=== PATIENT | female | born 1930 | race Caucasian/White ===

== ENCOUNTER 2016-09-24 21:33 | Inpatient (IN) | payer MEDICARE ==
[~2016-09-24] VITALS: Ht 160 cm; Wt 74.6 kg
[~2016-09-24 21:33] MED LIST: LEVO250T25 PO; METR500T PO; PRED20TA PO; TRAM50TA PO; WARF3TAB PO; WARF5TAB PO
--- NOTE | 2016-09-24 21:57 | PHYS DOC ---
Past Medical History Past Medical History: COPD Additional Past Medical Histor: WEARS O2 AT HOME Past Surgical History: Cholecystectomy, Tubal ligation Alcohol Use: None Drug Use: None Adult General Chief Complaint Chief Complaint: NEURO SYMPTOMS/DEFICITS HPI HPI Patient is a 86 year old female who presents with RUE weakness. Patient reports she was crocheting tonight ~2030 when she had acute onset of RUE weakness. This weakness has persisted; she denies weakness anywhere else. She denies numbness, change in vision, headache, slurred speech. No other acute symptoms. No prior similar episodes. She was taking warfarin in the past for DVT , but stopped this 6 months ago. Review of Systems Review of Systems Constitutional: Denies fever or chills Eyes: Denies change in visual acuity or eye pain HENT: Denies nasal congestion or sore throat Respiratory: Denies cough or shortness of breath Cardiovascular: Denies chest pain GI: Denies abdominal pain, nausea, vomiting, bloody stools or diarrhea : Denies dysuria or hematuria Musculoskeletal: Denies back pain or joint pain Integument: Denies rash or skin lesions Neurologic: RUE weakness. Denies headache, sensory changes Current Medications Current Medications Current Medications Medications (Trade) Dose Ordered Sig/Teodoro Start Time Stop Time Status Last Admin Dose Admin Aspirin (Quintin Aspirin) 325 mg 1X ONCE 09/24/16 23:15 09/24/16 23:16 DC 09/24/16 23:30 325 MG Labetalol HCl (Normodyne) 10 mg 1X ONCE 09/24/16 22:00 09/24/16 22:01 DC 09/24/16 22:08 10 MG Allergies Allergies Allergies Coded Allergies Type Severity Reaction Last Updated Verified codeine Allergy Severe Anaphylaxis 04/08/15 Yes nitrofurantoin Allergy Severe Shortness of Air 04/09/15 Yes Penicillins Allergy Intermediate Rash 04/08/15 Yes ciprofloxacin Adverse Reaction Intermediate DOES NOT WORK 04/09/15 Yes nut - unspecified Adverse Reaction Intermediate DIVERTICULITIS 01/08/16 No egg Adverse Reaction Unknown heartburn, indigestion 01/05/16 Yes onion Adverse Reaction Unknown STOMACH ACHE 01/08/16 No Physical Exam Physical Exam Constitutional: Well developed, well nourished, no acute distress, non-toxic appearance HENT: Normocephalic, atraumatic, bilateral external ears normal Eyes: PERRL, EOMI, conjunctiva normal, no discharge Neck: Normal range of motion, no stridor Cardiovascular: Heart rate normal, regular rhythm, no murmur Lungs & Thorax: Bilateral breath sounds clear to auscultation Abdomen: Bowel sounds normal, soft, non-distended, no TTP Skin: Warm, dry, no erythema, no rash Extremities: No obvious deformity, no edema Neurologic: Alert and oriented X 3, GCS 15, CN II-XII grossly intact, strength mildly decreased in RUE compared to LUE (shearing shed hand strength, flexion and extension of forearm), strength intact and symmetrical in BLE, sensation to light touch intact throughout, no dystaxia noted Psychologic: Affect normal, judgement normal, mood normal Current Patient Data Vital Signs Vital Signs Date Time Temp Pulse Resp B/P Pulse Ox O2 Delivery O2 Flow Rate FiO2 09/24/16 22:45 80 20 148/69 96 09/24/16 22:20 Nasal Cannula 2 09/24/16 21:35 98.3 98.3 Lab Values Laboratory Tests Test 09/24/16 22:24 09/24/16 22:33 White Blood Count 10.0x10^3/uL (4.0-11.0) Red Blood Count 4.72x10^6/uL (3.50-5.40) Hemoglobin 12.5g/dL (12.0-15.5) Hematocrit 39.2% (36.0-47.0) Mean Corpuscular Volume 83fL (79-100) Mean Corpuscular Hemoglobin 27pg (25-35) Mean Corpuscular Hemoglobin Concent 32g/dL (31-37) Red Cell Distribution Width 15.2% (11.5-14.5) H Platelet Count 358x10^3/uL (140-400) Neutrophils (%) (Auto) 82% (31-73) H Lymphocytes (%) (Auto) 10% (24-48) L Monocytes (%) (Auto) 7% (0-9) Eosinophils (%) (Auto) 1% (0-3) Basophils (%) (Auto) 0% (0-3) Neutrophils # (Auto) 8.2x10^3uL (1.8-7.7) H Lymphocytes # (Auto) 1.0x10^3/uL (1.0-4.8) Monocytes # (Auto) 0.7x10^3/uL (0.0-1.1) Eosinophils # (Auto) 0.1x10^3/uL (0.0-0.7) Basophils # (Auto) 0.0x10^3/uL (0.0-0.2) Prothrombin Time 13.7SEC (11.7-14.0) Prothrombin Time INR 1.1 (0.8-1.1) PTT 27SEC (24-38) Sodium Level 145mmol/L (136-145) Potassium Level 3.9mmol/L (3.5-5.1) Chloride Level 107mmol/L (98-107) Carbon Dioxide Level 30mmol/L (21-32) Anion Gap 8 (6-14) Blood Urea Nitrogen 18mg/dL (7-20) Creatinine 1.1mg/dL (0.6-1.0) H Estimated GFR (Cockcroft-Gault) 47.1 BUN/Creatinine Ratio 16 (6-20) Glucose Level 152mg/dL (70-99) H Calcium Level 9.1mg/dL (8.5-10.1) Total Bilirubin 0.3mg/dL (0.2-1.0) Aspartate Amino Transferase (AST) 10U/L (15-37) L Alanine Aminotransferase (ALT) 11U/L (14-59) L Alkaline Phosphatase 78U/L (46-116) Total Protein 6.2g/dL (6.4-8.2) L Albumin 3.0g/dL (3.4-5.0) L Albumin/Globulin Ratio 0.9 (1.0-1.7) L Glucose (Fingerstick) 138mg/dL (70-99) H Laboratory Tests 09/24/16 22:24 Laboratory Tests 09/24/16 22:24 EKG EKG EKG (my read): sinus tachycardia, rate 116, normal axis, PVC noted x2, nonspecific ST changes Radiology/Procedures Radiology/Procedures CT head: IMPRESSION: Subtle area of low attenuation in the left frontal lobe could represent early ischemia. No intracranial blood products present. Findings were discussed with Dr. Ferrera in the ER at 22:04 on 09/24/16 per code stroke protocol. CXR (my read): No significant change from prior RLE US: Pending Course & Med Decision Making Course & Med Decision Making Pertinent Labs and Imaging studies reviewed. (See chart for details) Patient is 86-year-old female who presents with acute onset of right upper extremity weakness. Activated as a code stroke. Taken emergently to CT. Imaging results as above. Labs, chest x-ray, EKG ordered to evaluate. Later, I added on an ultrasound of her right lower extremity; this has been feeling abnormal for the past couple weeks and she has a history of DVT in that leg. NIHSS only 1. I spoke with the on-call neurologist, Dr. Knight; patient within window for treatment with tPA and does not have any absolute contraindications. I had a long discussion with patient and her son, Bryan (on the phone), about the possibility of giving tPA to treat the suspected acute stroke. Together we came to the decision that the benefit of giving tPA to try to regain full function of the right upper extremity was not worth the risk. I specifically discussed with the patient that her right upper extremity deficit could be permanent, and affect her ability to do activities she enjoys (such as heather). Despite this, we still came to the conclusion that the risk from tPA was not worth the benefit due to her relatively mild deficit. I spoke with Dr. Renee (covering for Dr. Rincon); will admit under the care of Dr. Maicas for further evaluation and treatment. Dragon Disclaimer Dragon Disclaimer This electronic medical record was generated, in whole or in part, using a voice recognition dictation system. Departure Departure Impression: Primary Impression: Muscle weakness of right upper extremity Disposition: ADMITTED INPATIENT Admitting Physician: Stephanie Macias Condition: GUARDED Referrals: OSMAR RINCON MD (PCP) MARLA FERRERA MD Sep 24, 2016 21:57
[2016-09-24] MEDS ORDERED: LABETALOL 20 MG/4 ML DISP.SYRIN. IVP ONE (22:00)
--- NOTE | 2016-09-24 22:06 | RAD ---
INDICATION: 86-year-old female code stroke. Right upper extremity numbness since 8:30 p.m. COMPARISON: February 25, 2009, images only. TECHNIQUE: Axial, noncontrast CT images obtained through the head. One or more of the following individualized dose reduction techniques were utilized for this examination: 1. Automated exposure control; 2. Adjustment of the mA and/or kV according to patient size; 3. Use of iterative reconstruction technique. FINDINGS: No acute blood products, midline shift, mass effect or extra-axial fluid collections are seen. A subtle area of low attenuation is demonstrated in the left frontal lobe in the subcortical and periventricular region, not visualized on the previous exam from 2008. No other focal areas of low attenuation are seen. Ventricles and sulci appear appropriate for patient's age. Basilar cisterns are maintained. The visualized paranasal sinuses are clear. Mastoid air cells are clear. No calvarial fracture is present. Overlying scalp is intact. IMPRESSION: Subtle area of low attenuation in the left frontal lobe could represent early ischemia. No intracranial blood products present. Findings were discussed with Dr. Ferrera in the ER at 22:04 on 09/24/16 per code stroke protocol. Electronically signed by: Liza Mancuso (Sep 24, 2016 22:05:26)
[2016-09-24 22:46] LABS: BASO % 0 % (0-3); EOS % 1 % (0-3); HEMATOCRIT 39.2 % (36.0-47.0); HEMOGLOBIN 12.5 g/dL (12.0-15.5); LYMPH % 10 % (24-48); MEAN CORPUSCULAR HEMOGLOBIN 27 pg (25-35); MEAN CORPUSCULAR HGB CONC 32 g/dL (31-37); MEAN CORPUSCULAR VOLUME 83 fL (79-100); MONO % 7 % (0-9); NEUT % 82 % (31-73); PLATELET COUNT 358 x10^3/uL (140-400); RED BLOOD COUNT 4.72 x10^6/uL (3.50-5.40); RED CELL DISTRIBUTION WIDTH 15.2 % (11.5-14.5)
[2016-09-24 22:55] LABS: INR 1.1 (0.8-1.1); PROTHROMBIN TIME PATIENT 13.7 SEC (11.7-14.0)
[2016-09-24 23:01] LABS: CALCIUM 9.1 mg/dL (8.5-10.1); CREATININE 1.1 mg/dL (0.6-1.0); GFR 47.1; POTASSIUM 3.9 mmol/L (3.5-5.1)
[2016-09-24 23:07] LABS: ALBUMIN/GLOBULIN RATIO 0.9 (1.0-1.7); TOTAL BILIRUBIN 0.3 mg/dL (0.2-1.0); TOTAL PROTEIN 6.2 g/dL (6.4-8.2)
[2016-09-24] MEDS ORDERED: ASPIRIN 325 MG TABLET PO ONE (23:15)
[2016-09-24] MEDS ORDERED: ACETAMINOPHEN 325 MG TABLET. PO PRN (23:45)
[2016-09-24] MEDS ORDERED: ONDANSETRON PF 4 MG/2 ML VIAL. IV PRN (23:45)
[2016-09-24] MEDS ORDERED: LABETALOL 20 MG/4 ML DISP.SYRIN. IVP PRN (23:45)
[2016-09-25] VITALS (7 sets, daily range): BP systolic 118–164; BP diastolic 46–67
--- NOTE | 2016-09-25 02:13 | RAD ---
PROCEDURE Right lower extremity venous Doppler HISTORY pt c/o funny feeling in her rt leg x 2 months
hx of clot in peroneal vns

no evidence of dvt
the area where prev clot was seen, is patent and compressible TECHNIQUE Real-time ultrasound with compression, color flow Doppler and spectral Doppler with augmentation were utilized to evaluate the right lower extremity COMPARISON Comparison made with the study from June 2015 FINDINGS The common femoral, femoral, greater saphenous, and popliteal veins are compressible. Veins of the right lower extremity have flow with color imaging. There is normal antegrade flow with augmentation. There is flow with color Doppler in the deep veins of the calf with improvement in the peroneal vein since the old study. IMPRESSION Right lower extremity negative for acute deep venous thrombosis with improvement in the peroneal veins compared to the prior study. Electronically signed by: Jim López MD (Sep 25, 2016 02:12:25)
[2016-09-25 05:05] LABS: BASO % 0 % (0-3); EOS % 2 % (0-3); HEMATOCRIT 35.1 % (36.0-47.0); HEMOGLOBIN 11.2 g/dL (12.0-15.5); LYMPH # 1.5 x10^3/uL (1.0-4.8); LYMPH % 18 % (24-48); MEAN CORPUSCULAR HEMOGLOBIN 27 pg (25-35); MEAN CORPUSCULAR HGB CONC 32 g/dL (31-37); MEAN CORPUSCULAR VOLUME 84 fL (79-100); MONO % 9 % (0-9); NEUT % 71 % (31-73); PLATELET COUNT 295 x10^3/uL (140-400); RED BLOOD COUNT 4.17 x10^6/uL (3.50-5.40); RED CELL DISTRIBUTION WIDTH 15.2 % (11.5-14.5); WHITE BLOOD COUNT 8.6 x10^3/uL (4.0-11.0)
[2016-09-25 05:17] LABS: CALCIUM 8.7 mg/dL (8.5-10.1); GFR 52.6; POTASSIUM 3.7 mmol/L (3.5-5.1)
--- NOTE | 2016-09-25 07:57 | RAD ---
Portable chest, 09/24/2016: History: Right upper extremity weakness, possible stroke Comparison is made to a study from 04/08/2015. The heart size is normal. There is calcific plaquing of the aorta. There are a few scattered parenchymal scars. No acute infiltrate is seen. There is no evidence of pleural fluid. The bony structures are demineralized. IMPRESSION: No acute cardiopulmonary abnormality is detected with no significant change since 04/08/2015.
[2016-09-25] MEDS ORDERED: GADOBUTROL 7.5 MMOL/7.5 ML VIAL IV ONE (12:15)
--- NOTE | 2016-09-25 12:42 | RAD ---
MR of the brain with gadolinium, 09/25/2016: History: Right-sided weakness Imaging was performed in axial, sagittal and coronal planes utilizing a variety of imaging sequences including T1-weighted, T2-weighted, diffusion-weighted, FLAIR and T2*gradient echo sequences. T1 weighted scans were also obtained following IV injection of 7.5 cc of the Gadavist contrast agent. The ventricles are within normal limits in size. There is no shift of the midline structures. A small focus of restricted diffusion is seen in the cortex in the left parietal lobe. No abnormal postcontrast enhancement is seen in this region. The appearance is that of a small recent infarct. There are small areas of abnormal signal in the deep white matter bilaterally on the FLAIR sequence. There is no restricted diffusion or abnormal postcontrast enhancement in these regions. The findings are compatible with chronic ischemic change. The cerebellum and brainstem are unremarkable. No abnormal extra-axial fluid collection or mass is seen. IMPRESSION: 1. 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 2. Mild chronic ischemic change in the deep white matter bilaterally.
--- NOTE | 2016-09-25 12:49 | PDOC ---
OBJECTIVE Vital Signs Vital Signs Date Time Temp Pulse Resp B/P Pulse Ox O2 Delivery O2 Flow Rate FiO2 09/25/16 11:07 97.9 85 19 128/61 94 97.9 09/25/16 08:21 Nasal Cannula 2.0 09/25/16 07:45 97.9 68 18 121/49 95 97.9 09/25/16 03:28 97.9 77 18 140/59 95 97.9 09/25/16 01:43 Nasal Cannula 2.0 09/25/16 00:35 97.9 77 22 164/65 95 Nasal Cannula 2.0 97.9 09/24/16 23:59 74 20 144/67 97 Nasal Cannula 2 09/24/16 23:32 82 20 150/63 97 Nasal Cannula 2 09/24/16 22:45 80 20 148/69 96 09/24/16 22:20 81 17 143/65 97 Nasal Cannula 2 09/24/16 22:08 101 173/81 09/24/16 22:00 96 20 167/74 97 Nasal Cannula 2 09/24/16 21:35 98.3 109 16 212/88 95 Nasal Cannula 2 98.3 ASSESSMENT/PLAN Assessment/Plan 101158 H&P dictated Problems: COMMENT Lab Laboratory Tests Test 09/24/16 22:24 09/24/16 22:33 09/25/16 03:45 White Blood Count 10.0x10^3/uL (4.0-11.0) 8.6x10^3/uL (4.0-11.0) Red Blood Count 4.72x10^6/uL (3.50-5.40) 4.17x10^6/uL (3.50-5.40) Hemoglobin 12.5g/dL (12.0-15.5) 11.2g/dL (12.0-15.5) Hematocrit 39.2% (36.0-47.0) 35.1% (36.0-47.0) Mean Corpuscular Volume 83fL (79-100) 84fL (79-100) Mean Corpuscular Hemoglobin 27pg (25-35) 27pg (25-35) Mean Corpuscular Hemoglobin Concent 32g/dL (31-37) 32g/dL (31-37) Red Cell Distribution Width 15.2% (11.5-14.5) 15.2% (11.5-14.5) Platelet Count 358x10^3/uL (140-400) 295x10^3/uL (140-400) Neutrophils (%) (Auto) 82% (31-73) 71% (31-73) Lymphocytes (%) (Auto) 10% (24-48) 18% (24-48) Monocytes (%) (Auto) 7% (0-9) 9% (0-9) Eosinophils (%) (Auto) 1% (0-3) 2% (0-3) Basophils (%) (Auto) 0% (0-3) 0% (0-3) Neutrophils # (Auto) 8.2x10^3uL (1.8-7.7) 6.1x10^3uL (1.8-7.7) Lymphocytes # (Auto) 1.0x10^3/uL (1.0-4.8) 1.5x10^3/uL (1.0-4.8) Monocytes # (Auto) 0.7x10^3/uL (0.0-1.1) 0.8x10^3/uL (0.0-1.1) Eosinophils # (Auto) 0.1x10^3/uL (0.0-0.7) 0.2x10^3/uL (0.0-0.7) Basophils # (Auto) 0.0x10^3/uL (0.0-0.2) 0.0x10^3/uL (0.0-0.2) Prothrombin Time 13.7SEC (11.7-14.0) Prothromb Time International Ratio 1.1 (0.8-1.1) Activated Partial Thromboplast Time 27SEC (24-38) Sodium Level 145mmol/L (136-145) 146mmol/L (136-145) Potassium Level 3.9mmol/L (3.5-5.1) 3.7mmol/L (3.5-5.1) Chloride Level 107mmol/L (98-107) 109mmol/L (98-107) Carbon Dioxide Level 30mmol/L (21-32) 33mmol/L (21-32) Anion Gap 8 (6-14) 4 (6-14) Blood Urea Nitrogen 18mg/dL (7-20) 18mg/dL (7-20) Creatinine 1.1mg/dL (0.6-1.0) 1.0mg/dL (0.6-1.0) Estimated GFR (Cockcroft-Gault) 47.1 52.6 BUN/Creatinine Ratio 16 (6-20) Glucose Level 152mg/dL (70-99) 116mg/dL (70-99) Calcium Level 9.1mg/dL (8.5-10.1) 8.7mg/dL (8.5-10.1) Total Bilirubin 0.3mg/dL (0.2-1.0) Aspartate Amino Transf (AST/SGOT) 10U/L (15-37) Alanine Aminotransferase (ALT/SGPT) 11U/L (14-59) Alkaline Phosphatase 78U/L (46-116) Total Protein 6.2g/dL (6.4-8.2) Albumin 3.0g/dL (3.4-5.0) Albumin/Globulin Ratio 0.9 (1.0-1.7) Glucose (Fingerstick) 138mg/dL (70-99) JOSE MURPHY MD Sep 25, 2016 12:49
[2016-09-25 13:08] LABS: CHOLESTEROL/HDL RATIO 3.6
--- NOTE | 2016-09-25 13:25 | PREOP HP ---
DATE OF SERVICE: 09/24/2016 HISTORY OF PRESENT ILLNESS: The patient is an 86-year-old lady who presented to the Emergency Room due to right lower extremity weakness. The patient stated that she was crocheting as usual in the evening while she had acute onset of numbness and weakness in the right upper extremity. She denies any changes in her vision. Denies headache, denies slurred speech, any weakness or numbness in her lower extremity. She had no prior episodes of any similar symptoms. PAST MEDICAL HISTORY: Significant for cataract surgery; COPD; emphysema; bronchitis; diverticulitis; cholecystectomy; UTI; stress incontinence; osteoarthritis; DVT, was on anticoagulation in 2016, stopped Coumadin 6 months ago; and history of tubal ligation. FAMILY HISTORY: Positive for emphysema, gallbladder disease, diabetes, cardiovascular disease, dementia and MIs. SOCIAL HISTORY: She used to smoke, but stopped smoking. She does not use alcohol or any other drugs. REVIEW OF SYSTEMS: CONSTITUTIONAL: Denies fever or chills. EYES: Denies visual changes. HEENT: Denies nasal congestion or sore throat. RESPIRATORY: Denies cough or shortness of breath. CARDIOVASCULAR: Denies chest pain. GASTROINTESTINAL: Denies abdominal pain, nausea or vomiting. GENITOURINARY: Denies dysuria or hematuria. MUSCULOSKELETAL: Denies back pain or joint pain, but does have regular arthritis. NEUROLOGIC: Right upper extremity weakness and numbness. No headache or other complaints. PHYSICAL EXAMINATION: GENERAL: She is well-developed, well-nourished, in no acute distress, cooperative. HEENT: Tympanic membranes are clear. Eyes: Pupils are reactive to light and accommodation. NECK: Supple. HEART: Regular rate and rhythm. LUNGS: Clear. ABDOMEN: Soft. SKIN: Warm and dry. EXTREMITIES: No edema, clubbing or cyanosis. NEUROLOGICAL: She is alert and oriented x 3. Her cranial nerves are intact. Her strength is mildly decreased in the right upper extremity, 4/5, comparing to 5/5 in the left upper extremity. She also has some tingling sensation. Her strength in the lower extremities is normal. IMPRESSION: 1. Cerebrovascular accident affecting right upper extremity. 2. Chronic obstructive pulmonary disease and emphysema. 3. History of stress incontinence. 4. History of deep venous thrombosis. PLAN: The patient is admitted, started on aspirin. Echocardiogram, carotid ultrasound and MRI of the brain will be obtained. We will evaluate her lipid status: She is not aware of high cholesterol or hypertension in the past. JOSE MURPHY MD DR: NATALIYA/hernan JOB#: [id number] / [id number]
[2016-09-25] MEDS: LOSARTAN POTASSIUM 25 MG TABLET. PO SCH (13:32)
--- NOTE | 2016-09-25 14:17 | EKG ---
[facility] [address] [place] [address] Test Date: 2016-09-24 Test Time: 21:48:21 Pat Name: LEXX MAGANA Department: Room: Gender: F [employer]: : 1930 Requested By: MARLA WEATHERS Order Number: [id number] Reading MD: Measurements Intervals [place] Rate: 116 P: 49 [place]: 160 QRS: 19 QRSD: 78 T: 35 QT: 330 QTc: 465 Interpretive Statements SINUS TACHYCARDIA RI6.01 Unconfirmed report No previous ECG available for comparison
--- NOTE | 2016-09-25 15:40 | RAD ---
Carotid ultrasound, 09/25/2016: History: Stroke, right-sided weakness Duplex evaluation of the carotid arteries in the neck was performed including grayscale, color-flow and spectral Doppler analysis. There is mild intimal thickening in the common carotid arteries and at the carotid bifurcations. No prominent atherosclerotic plaquing is seen. The Doppler data obtained from the bifurcations reveals no significant focal velocity acceleration to suggest a hemodynamically significant carotid stenosis. Antegrade flow is present in both vertebral arteries in the neck. IMPRESSION: No duplex evidence of a significant carotid stenosis in the neck. Note: Stenosis calculations for CT, MRA and conventional angiography are based upon determination of the distal ICA diameter in accordance with the NASCET methodology. Stenosis calculations for Doppler studies are derived from validated velocity criteria which are known to correlate with NASCET methodology of determining stenosis.
--- NOTE | 2016-09-25 16:05 | PDOC2 ---
CONSULT Date of Consult Date of Consult DATE: 09/25/16 TIME: 15:59 Reason for Consult Reason for Consult: right ext weakness. History of Present Illness Reason for Visit: This patient is a 86-year-old woman who presented to emergency room with complaint of weakness on the right upper extremity. She reports she was crocheting and she was having some weakness on her right upper extremity she reported her symptoms started around evening with worsening around 2030. When she presented to the emergency room she denied any tingling numbness difficulty speaking and dizziness chest pain shortness of breath. She was recommended IV TPA. Patient was not interested in getting the stronger medicine despite the risk and benefit discussed discussed. Patient had a stroke scale of 1. Patient reports she has history of DVT in the past was on blood thinners previously. Patient was not currently taking any blood thinners. Current Problem List Problem List Problems Medical Problems: (1) Muscle weakness of right upper extremity Status: Acute (2) Stroke Status: Acute Current Medications Current Medications Current Medications Labetalol HCl (Normodyne) 10 mg 1X ONCE IVP Last administered on 09/24/16 22: 08; Start 09/24/16 at 22:00; Stop 09/24/16 at 22:01; Status DC Aspirin (Quintin Aspirin) 325 mg 1X ONCE PO Last administered on 09/24/16 23:30 ; Start 09/24/16 at 23:15; Stop 09/24/16 at 23:16; Status DC Ondansetron HCl (Zofran) 4 mg PRN Q8HRS PRN IV NAUSEA/VOMITING; Start 09/24/16 at 23:45; Stop 09/25/16 at 23:44 Acetaminophen (Tylenol) 650 mg PRN Q4HRS PRN PO FEVER; Start 09/24/16 at 23:45 ; Stop 09/25/16 at 23:44 Labetalol HCl (Normodyne) 10 mg PRN Q1HR PRN IVP ELEVATED BP, SEE COMMENTS; Start 09/24/16 at 23:45 Gadobutrol (Gadavist) 7.5 mmol 1X ONCE IV Last administered on 09/25/16 12:26 ; Start 09/25/16 at 12:15; Stop 09/25/16 at 12:16; Status DC Losartan Potassium (Cozaar) 25 mg DAILY PO Last administered on 2/26/17at 13:32 ; Start 09/25/16 at 13:00 Active Scripts Active Allergies Allergies: Coded Allergies: codeine (Verified Allergy, Severe, Anaphylaxis, 04/08/15) HAS TOLERATED MORPHINE BUT DOES NOT LIKE nitrofurantoin (Verified Allergy, Severe, Shortness of Air, 04/09/15) Penicillins (Verified Allergy, Intermediate, Rash, 04/08/15) ciprofloxacin (Verified Adverse Reaction, Intermediate, DOES NOT WORK, 05/14) nut - unspecified (Verified Adverse Reaction, Intermediate, DIVERTICULITIS , 09/25/16) egg (Verified Adverse Reaction, Unknown, heartburn, indigestion, 01/05/16) onion (Unverified Adverse Reaction, Unknown, STOMACH ACHE, 01/08/16) Physical Exam Physical Exam REVIEW OF SYSTEMS: Constitutional: No malnutrition, weight loss, cachexia. Head: No traumatic brain or head injury. Skin: No edema, or rash. Ear: No infection, tinnitus. Eyes: No vision loss or color blindness. Nose: No bleeding or purulent discharges. Hearing: No hearing decrease. Neck: No injury. Cardiac: HTN, HLD. Pulmonary: No COPD. GI: No GI ulcer, GI bleeding. Urinary/genital: No dysuria, hematuria, incontinence, urinary retention Endocrinologic: Diabetes Mellitus Skeletomuscular: No muscular atrophy, deformity Neurological: see HP. Psychiatric: Denies drug use/abuse. Otherwise, not [id number] review of systems. PHYSICAL EXAMINATION: General appearance is in acute distress. HEENT: Normocephalic and nontraumatic. Eyes, nose, ears, and throat are unremarkable. Neck is supple. No lymphadenopathy. No crepitus. Cardiovascular: S1, S2, regular rate and rhythm. Pulmonary: Clear to auscultation bilaterally. Abdomen: Bowel sounds are positive. Abdomen is soft, nontender, and nondistended. Extremities: No rash, lesions, or edema. No restriction of range of motion NEUROLOGICAL EXAMINATION: Alert Oriented to time, place and person. PERRL. EOMI. CN: no focal findings. Muscle tone: within normal. Muscle strength: 5 slight weakness in right hand DTR: 2 Plantar reflex: Flexor response bilaterally Gait: not examined in bed. Vitals VITALS Vital Signs Date Time Temp Pulse Resp B/P Pulse Ox O2 Delivery O2 Flow Rate FiO2 09/25/16 15:00 97.9 70 16 118/46 96 97.9 09/25/16 08:21 Nasal Cannula 2.0 Labs Labs Laboratory Tests Test 09/24/16 22:24 09/24/16 22:33 09/25/16 03:45 09/25/16 15:00 White Blood Count 10.0x10^3/uL (4.0-11.0) 8.6x10^3/uL (4.0-11.0) Red Blood Count 4.72x10^6/uL (3.50-5.40) 4.17x10^6/uL (3.50-5.40) Hemoglobin 12.5g/dL (12.0-15.5) 11.2g/dL (12.0-15.5) Hematocrit 39.2% (36.0-47.0) 35.1% (36.0-47.0) Mean Corpuscular Volume 83fL (79-100) 84fL (79-100) Mean Corpuscular Hemoglobin 27pg (25-35) 27pg (25-35) Mean Corpuscular Hemoglobin Concent 32g/dL (31-37) 32g/dL (31-37) Red Cell Distribution Width 15.2% (11.5-14.5) 15.2% (11.5-14.5) Platelet Count 358x10^3/uL (140-400) 295x10^3/uL (140-400) Neutrophils (%) (Auto) 82% (31-73) 71% (31-73) Lymphocytes (%) (Auto) 10% (24-48) 18% (24-48) Monocytes (%) (Auto) 7% (0-9) 9% (0-9) Eosinophils (%) (Auto) 1% (0-3) 2% (0-3) Basophils (%) (Auto) 0% (0-3) 0% (0-3) Neutrophils # (Auto) 8.2x10^3uL (1.8-7.7) 6.1x10^3uL (1.8-7.7) Lymphocytes # (Auto) 1.0x10^3/uL (1.0-4.8) 1.5x10^3/uL (1.0-4.8) Monocytes # (Auto) 0.7x10^3/uL (0.0-1.1) 0.8x10^3/uL (0.0-1.1) Eosinophils # (Auto) 0.1x10^3/uL (0.0-0.7) 0.2x10^3/uL (0.0-0.7) Basophils # (Auto) 0.0x10^3/uL (0.0-0.2) 0.0x10^3/uL (0.0-0.2) Prothrombin Time 13.7SEC (11.7-14.0) Prothromb Time International Ratio 1.1 (0.8-1.1) Activated Partial Thromboplast Time 27SEC (24-38) Sodium Level 145mmol/L (136-145) 146mmol/L (136-145) Potassium Level 3.9mmol/L (3.5-5.1) 3.7mmol/L (3.5-5.1) Chloride Level 107mmol/L (98-107) 109mmol/L (98-107) Carbon Dioxide Level 30mmol/L (21-32) 33mmol/L (21-32) Anion Gap 8 (6-14) 4 (6-14) Blood Urea Nitrogen 18mg/dL (7-20) 18mg/dL (7-20) Creatinine 1.1mg/dL (0.6-1.0) 1.0mg/dL (0.6-1.0) Estimated GFR (Cockcroft-Gault) 47.1 52.6 BUN/Creatinine Ratio 16 (6-20) Glucose Level 152mg/dL (70-99) 116mg/dL (70-99) Calcium Level 9.1mg/dL (8.5-10.1) 8.7mg/dL (8.5-10.1) Total Bilirubin 0.3mg/dL (0.2-1.0) Aspartate Amino Transf (AST/SGOT) 10U/L (15-37) Alanine Aminotransferase (ALT/SGPT) 11U/L (14-59) Alkaline Phosphatase 78U/L (46-116) Total Protein 6.2g/dL (6.4-8.2) Albumin 3.0g/dL (3.4-5.0) Albumin/Globulin Ratio 0.9 (1.0-1.7) Glucose (Fingerstick) 138mg/dL (70-99) Triglycerides Level 98mg/dL (0-150) Cholesterol Level 157mg/dL (0-200) LDL Cholesterol, Calculated 93mg/dL (0-100) VLDL Cholesterol, Calculated 20mg/dL (0-40) HDL Cholesterol 44mg/dL (40-60) Cholesterol/HDL Ratio 3.6 C-Reactive Protein, Quantitative 4.9mg/L (0-3.3) Laboratory Tests Test 09/24/16 22:24 09/24/16 22:33 09/25/16 03:45 09/25/16 15:00 White Blood Count 10.0x10^3/uL (4.0-11.0) 8.6x10^3/uL (4.0-11.0) Red Blood Count 4.72x10^6/uL (3.50-5.40) 4.17x10^6/uL (3.50-5.40) Hemoglobin 12.5g/dL (12.0-15.5) 11.2g/dL (12.0-15.5) Hematocrit 39.2% (36.0-47.0) 35.1% (36.0-47.0) Mean Corpuscular Volume 83fL (79-100) 84fL (79-100) Mean Corpuscular Hemoglobin 27pg (25-35) 27pg (25-35) Mean Corpuscular Hemoglobin Concent 32g/dL (31-37) 32g/dL (31-37) Red Cell Distribution Width 15.2% (11.5-14.5) 15.2% (11.5-14.5) Platelet Count 358x10^3/uL (140-400) 295x10^3/uL (140-400) Neutrophils (%) (Auto) 82% (31-73) 71% (31-73) Lymphocytes (%) (Auto) 10% (24-48) 18% (24-48) Monocytes (%) (Auto) 7% (0-9) 9% (0-9) Eosinophils (%) (Auto) 1% (0-3) 2% (0-3) Basophils (%) (Auto) 0% (0-3) 0% (0-3) Neutrophils # (Auto) 8.2x10^3uL (1.8-7.7) 6.1x10^3uL (1.8-7.7) Lymphocytes # (Auto) 1.0x10^3/uL (1.0-4.8) 1.5x10^3/uL (1.0-4.8) Monocytes # (Auto) 0.7x10^3/uL (0.0-1.1) 0.8x10^3/uL (0.0-1.1) Eosinophils # (Auto) 0.1x10^3/uL (0.0-0.7) 0.2x10^3/uL (0.0-0.7) Basophils # (Auto) 0.0x10^3/uL (0.0-0.2) 0.0x10^3/uL (0.0-0.2) Prothrombin Time 13.7SEC (11.7-14.0) Prothromb Time International Ratio 1.1 (0.8-1.1) Activated Partial Thromboplast Time 27SEC (24-38) Sodium Level 145mmol/L (136-145) 146mmol/L (136-145) Potassium Level 3.9mmol/L (3.5-5.1) 3.7mmol/L (3.5-5.1) Chloride Level 107mmol/L (98-107) 109mmol/L (98-107) Carbon Dioxide Level 30mmol/L (21-32) 33mmol/L (21-32) Anion Gap 8 (6-14) 4 (6-14) Blood Urea Nitrogen 18mg/dL (7-20) 18mg/dL (7-20) Creatinine 1.1mg/dL (0.6-1.0) 1.0mg/dL (0.6-1.0) Estimated GFR (Cockcroft-Gault) 47.1 52.6 BUN/Creatinine Ratio 16 (6-20) Glucose Level 152mg/dL (70-99) 116mg/dL (70-99) Calcium Level 9.1mg/dL (8.5-10.1) 8.7mg/dL (8.5-10.1) Total Bilirubin 0.3mg/dL (0.2-1.0) Aspartate Amino Transf (AST/SGOT) 10U/L (15-37) Alanine Aminotransferase (ALT/SGPT) 11U/L (14-59) Alkaline Phosphatase 78U/L (46-116) Total Protein 6.2g/dL (6.4-8.2) Albumin 3.0g/dL (3.4-5.0) Albumin/Globulin Ratio 0.9 (1.0-1.7) Glucose (Fingerstick) 138mg/dL (70-99) Triglycerides Level 98mg/dL (0-150) Cholesterol Level 157mg/dL (0-200) LDL Cholesterol, Calculated 93mg/dL (0-100) VLDL Cholesterol, Calculated 20mg/dL (0-40) HDL Cholesterol 44mg/dL (40-60) Cholesterol/HDL Ratio 3.6 C-Reactive Protein, Quantitative 4.9mg/L (0-3.3) Assessment/Plan Assessment/Plan A/P This patient is a 86-year-old woman who presented to emergency room with complaint of weakness on the right upper extremity. She reports she was crocheting and she was having some weakness on her right upper extremity she reported her symptoms started around evening with worsening around 2029. When she presented to the emergency room she denied any tingling numbness difficulty speaking and dizziness chest pain shortness of breath. She was recommended IV TPA. Patient was not interested in getting the stronger medicine despite the risk and benefit discussed discussed. Patient had a stroke scale of 1. Patient reports she has history of DVT in the past was on blood thinners previously. Patient was not currently taking any blood thinners. CVA Aspirin and statin MRI brain 1. 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 2. Mild chronic ischemic change in the deep white matter bilaterally. . Carotid Doppler Continue blood pressure monitoring History of chronic obstructive pulmonary disease. History of stress incontinence History of DVT PTOT evaluation Continue medical management GUANACO GRECO MD Sep 25, 2016 16:05
[2016-09-25] MEDS: ATORVASTATIN CALCIUM 10 MG TABLET. PO SCH (20:52)
[2016-09-26 03:05] VITALS: BP 146/66
[2016-09-26 04:33] LABS: HEMATOCRIT 36.7 % (36.0-47.0); HEMOGLOBIN 11.7 g/dL (12.0-15.5); RED BLOOD COUNT 4.32 x10^6/uL (3.50-5.40); RED CELL DISTRIBUTION WIDTH 15.2 % (11.5-14.5); WHITE BLOOD COUNT 7.8 x10^3/uL (4.0-11.0)
[2016-09-26 04:59] LABS: ALBUMIN 2.7 g/dL (3.4-5.0); ALBUMIN/GLOBULIN RATIO 1.1 (1.0-1.7); CALCIUM 8.9 mg/dL (8.5-10.1); CREATININE 0.9 mg/dL (0.6-1.0); GFR 59.4; POTASSIUM 4.3 mmol/L (3.5-5.1); TOTAL BILIRUBIN 0.3 mg/dL (0.2-1.0); TOTAL PROTEIN 5.1 g/dL (6.4-8.2)
[2016-09-26 07:05] VITALS: BP 131/71
[2016-09-26] MEDS: LOSARTAN POTASSIUM 25 MG TABLET. PO SCH (09:02)
[2016-09-26] MEDS: ASPIRIN 81 MG TAB.CHEW PO SCH (09:02)
--- NOTE | 2016-09-26 10:02 | PDOC ---
PROGRESS NOTES Assessment Problems Medical Problems: (1) Muscle weakness of right upper extremity Status: Acute (2) Stroke Status: Acute CVA, left parietal cortical, etiology unknown Plan Await workup Aspirin Statin Rehab, probably home today or tomorrow Subjective She says hand strength is improving Objective Vital Signs Date Time Temp Pulse Resp B/P Pulse Ox O2 Delivery O2 Flow Rate FiO2 09/26/16 09:02 73 131/71 09/26/16 08:00 Nasal Cannula 2.0 09/26/16 07:05 97.9 20 95 97.9 Intake and Output 09/26/16 07:00 Intake Total 168 ml Output Total 600 ml Balance -432 ml Intake Oral 168 ml Output Urine Total 600 ml # Voids 1 PHYSICAL EXAM Alert. Oriented to time, place and person. PERRL. EOMI. CN: no focal findings. Muscle tone: normal. Muscle strength: 5-/5 right hand, otherwise 5/5 DTR: 2+ Plantar reflex: flexor Gait: not examined in bed. Sensory exam: no abnormal findings. No cerebellar signs elicited. Review of Relevant I have reviewed the following items jaleel (where applicable) has been applied. Labs Laboratory Tests Test 09/24/16 22:24 09/24/16 22:33 09/25/16 03:45 09/25/16 15:00 White Blood Count 10.0x10^3/uL (4.0-11.0) 8.6x10^3/uL (4.0-11.0) Red Blood Count 4.72x10^6/uL (3.50-5.40) 4.17x10^6/uL (3.50-5.40) Hemoglobin 12.5g/dL (12.0-15.5) 11.2g/dL (12.0-15.5) Hematocrit 39.2% (36.0-47.0) 35.1% (36.0-47.0) Mean Corpuscular Volume 83fL (79-100) 84fL (79-100) Mean Corpuscular Hemoglobin 27pg (25-35) 27pg (25-35) Mean Corpuscular Hemoglobin Concent 32g/dL (31-37) 32g/dL (31-37) Red Cell Distribution Width 15.2% (11.5-14.5) 15.2% (11.5-14.5) Platelet Count 358x10^3/uL (140-400) 295x10^3/uL (140-400) Neutrophils (%) (Auto) 82% (31-73) 71% (31-73) Lymphocytes (%) (Auto) 10% (24-48) 18% (24-48) Monocytes (%) (Auto) 7% (0-9) 9% (0-9) Eosinophils (%) (Auto) 1% (0-3) 2% (0-3) Basophils (%) (Auto) 0% (0-3) 0% (0-3) Neutrophils # (Auto) 8.2x10^3uL (1.8-7.7) 6.1x10^3uL (1.8-7.7) Lymphocytes # (Auto) 1.0x10^3/uL (1.0-4.8) 1.5x10^3/uL (1.0-4.8) Monocytes # (Auto) 0.7x10^3/uL (0.0-1.1) 0.8x10^3/uL (0.0-1.1) Eosinophils # (Auto) 0.1x10^3/uL (0.0-0.7) 0.2x10^3/uL (0.0-0.7) Basophils # (Auto) 0.0x10^3/uL (0.0-0.2) 0.0x10^3/uL (0.0-0.2) Prothrombin Time 13.7SEC (11.7-14.0) Prothromb Time International Ratio 1.1 (0.8-1.1) Activated Partial Thromboplast Time 27SEC (24-38) Sodium Level 145mmol/L (136-145) 146mmol/L (136-145) Potassium Level 3.9mmol/L (3.5-5.1) 3.7mmol/L (3.5-5.1) Chloride Level 107mmol/L (98-107) 109mmol/L (98-107) Carbon Dioxide Level 30mmol/L (21-32) 33mmol/L (21-32) Anion Gap 8 (6-14) 4 (6-14) Blood Urea Nitrogen 18mg/dL (7-20) 18mg/dL (7-20) Creatinine 1.1mg/dL (0.6-1.0) 1.0mg/dL (0.6-1.0) Estimated GFR (Cockcroft-Gault) 47.1 52.6 BUN/Creatinine Ratio 16 (6-20) Glucose Level 152mg/dL (70-99) 116mg/dL (70-99) Calcium Level 9.1mg/dL (8.5-10.1) 8.7mg/dL (8.5-10.1) Total Bilirubin 0.3mg/dL (0.2-1.0) Aspartate Amino Transf (AST/SGOT) 10U/L (15-37) Alanine Aminotransferase (ALT/SGPT) 11U/L (14-59) Alkaline Phosphatase 78U/L (46-116) Total Protein 6.2g/dL (6.4-8.2) Albumin 3.0g/dL (3.4-5.0) Albumin/Globulin Ratio 0.9 (1.0-1.7) Glucose (Fingerstick) 138mg/dL (70-99) Triglycerides Level 98mg/dL (0-150) Cholesterol Level 157mg/dL (0-200) LDL Cholesterol, Calculated 93mg/dL (0-100) VLDL Cholesterol, Calculated 20mg/dL (0-40) HDL Cholesterol 44mg/dL (40-60) Cholesterol/HDL Ratio 3.6 Erythrocyte Sedimentation Rate 4 (0-25) C-Reactive Protein, Quantitative 4.9mg/L (0-3.3) Test 09/26/16 03:40 White Blood Count 7.8x10^3/uL (4.0-11.0) Red Blood Count 4.32x10^6/uL (3.50-5.40) Hemoglobin 11.7g/dL (12.0-15.5) Hematocrit 36.7% (36.0-47.0) Mean Corpuscular Volume 85fL (79-100) Mean Corpuscular Hemoglobin 27pg (25-35) Mean Corpuscular Hemoglobin Concent 32g/dL (31-37) Red Cell Distribution Width 15.2% (11.5-14.5) Platelet Count 311x10^3/uL (140-400) Sodium Level 146mmol/L (136-145) Potassium Level 4.3mmol/L (3.5-5.1) Chloride Level 108mmol/L (98-107) Carbon Dioxide Level 30mmol/L (21-32) Anion Gap 8 (6-14) Blood Urea Nitrogen 18mg/dL (7-20) Creatinine 0.9mg/dL (0.6-1.0) Estimated GFR (Cockcroft-Gault) 59.4 BUN/Creatinine Ratio 20 (6-20) Glucose Level 106mg/dL (70-99) Calcium Level 8.9mg/dL (8.5-10.1) Total Bilirubin 0.3mg/dL (0.2-1.0) Aspartate Amino Transf (AST/SGOT) 10U/L (15-37) Alanine Aminotransferase (ALT/SGPT) 12U/L (14-59) Alkaline Phosphatase 70U/L (46-116) Total Protein 5.1g/dL (6.4-8.2) Albumin 2.7g/dL (3.4-5.0) Albumin/Globulin Ratio 1.1 (1.0-1.7) Laboratory Tests Test 09/25/16 15:00 09/26/16 03:40 Erythrocyte Sedimentation Rate 4 (0-25) C-Reactive Protein, Quantitative 4.9mg/L (0-3.3) White Blood Count 7.8x10^3/uL (4.0-11.0) Red Blood Count 4.32x10^6/uL (3.50-5.40) Hemoglobin 11.7g/dL (12.0-15.5) Hematocrit 36.7% (36.0-47.0) Mean Corpuscular Volume 85fL (79-100) Mean Corpuscular Hemoglobin 27pg (25-35) Mean Corpuscular Hemoglobin Concent 32g/dL (31-37) Red Cell Distribution Width 15.2% (11.5-14.5) Platelet Count 311x10^3/uL (140-400) Sodium Level 146mmol/L (136-145) Potassium Level 4.3mmol/L (3.5-5.1) Chloride Level 108mmol/L (98-107) Carbon Dioxide Level 30mmol/L (21-32) Anion Gap 8 (6-14) Blood Urea Nitrogen 18mg/dL (7-20) Creatinine 0.9mg/dL (0.6-1.0) Estimated GFR (Cockcroft-Gault) 59.4 BUN/Creatinine Ratio 20 (6-20) Glucose Level 106mg/dL (70-99) Calcium Level 8.9mg/dL (8.5-10.1) Total Bilirubin 0.3mg/dL (0.2-1.0) Aspartate Amino Transf (AST/SGOT) 10U/L (15-37) Alanine Aminotransferase (ALT/SGPT) 12U/L (14-59) Alkaline Phosphatase 70U/L (46-116) Total Protein 5.1g/dL (6.4-8.2) Albumin 2.7g/dL (3.4-5.0) Albumin/Globulin Ratio 1.1 (1.0-1.7) Medications Current Medications Labetalol HCl (Normodyne) 10 mg 1X ONCE IVP Last administered on 09/24/16 22: 08; Start 09/24/16 at 22:00; Stop 09/24/16 at 22:01; Status DC Aspirin (Invoca Aspirin) 325 mg 1X ONCE PO Last administered on 09/24/16 23:30 ; Start 09/24/16 at 23:15; Stop 09/24/16 at 23:16; Status DC Ondansetron HCl (Zofran) 4 mg PRN Q8HRS PRN IV NAUSEA/VOMITING; Start 09/24/16 at 23:45; Stop 09/25/16 at 23:44; Status DC Acetaminophen (Tylenol) 650 mg PRN Q4HRS PRN PO FEVER; Start 09/24/16 at 23:45 ; Stop 09/25/16 at 23:44; Status DC Labetalol HCl (Normodyne) 10 mg PRN Q1HR PRN IVP ELEVATED BP, SEE COMMENTS; Start 09/24/16 at 23:45 Gadobutrol (Gadavist) 7.5 mmol 1X ONCE IV Last administered on 09/25/16 12:26 ; Start 09/25/16 at 12:15; Stop 09/25/16 at 12:16; Status DC Losartan Potassium (Cozaar) 25 mg DAILY PO Last administered on 09/26/16 09:02 ; Start 09/25/16 at 13:00 Aspirin (Children'S Aspirin) 162 mg [id number] PO Last administered on 09:02; Start 09/26/16 at 08:00 Atorvastatin Calcium (Lipitor) 10 mg QHS PO Last administered on 09/25/16 20: 52; Start 09/25/16 at 21:00 Active Scripts Active Vitals/I & O Vital Sign - Last 24 Hours 09/25/16 09/25/16 09/25/16 09/25/16 11:07 13:32 15:00 19:30 Temp 97.9 97.9 98.9 97.9 97.9 98.9 Pulse 85 85 70 85 Resp 19 16 20 B/P 128/61 128/61 118/46 134/60 Pulse Ox 94 96 97 O2 Delivery Nasal Cannula O2 Flow Rate 2.0 09/25/16 09/25/16 09/26/16 09/26/16 20:00 22:55 03:05 07:05 Temp 99.1 99.0 97.9 99.1 99.0 97.9 Pulse 87 91 73 Resp 20 22 20 B/P 144/67 146/66 131/71 Pulse Ox 95 94 95 O2 Delivery Nasal Cannula Nasal Cannula Nasal Cannula Nasal Cannula O2 Flow Rate 2.0 2.0 2.0 2.0 09/26/16 09/26/16 08:00 09:02 Pulse 73 B/P 131/71 O2 Delivery Nasal Cannula O2 Flow Rate 2.0 Intake and Output 09/25/16 09/25/16 09/26/16 15:00 23:00 07:00 Intake Total 118 ml 50 ml Output Total 350 ml 250 ml Balance -232 ml -200 ml Images MRI: 1. 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 2. Mild chronic ischemic change in the deep white matter bilaterally. Carotids: negative JAQUAN DOE MD Sep 26, 2016 10:02
[2016-09-26 10:34] VITALS: BP 126/60
--- NOTE | 2016-09-26 11:45 | PDOC ---
SUBJECTIVE Subjective feels better, still weak mostly index and thumb of RUE, OBJECTIVE Vital Signs Vital Signs Date Time Temp Pulse Resp B/P Pulse Ox O2 Delivery O2 Flow Rate FiO2 09/26/16 10:34 97.9 82 16 126/60 94 Nasal Cannula 2.0 97.9 09/26/16 09:02 73 131/71 09/26/16 08:00 Nasal Cannula 2.0 09/26/16 07:05 97.9 73 20 131/71 95 Nasal Cannula 2.0 97.9 09/26/16 03:05 99.0 91 22 146/66 94 Nasal Cannula 2.0 99.0 09/25/16 22:55 99.1 87 20 144/67 95 Nasal Cannula 2.0 99.1 09/25/16 20:00 Nasal Cannula 2.0 09/25/16 19:30 98.9 85 20 134/60 97 Nasal Cannula 2.0 98.9 09/25/16 15:00 97.9 70 16 118/46 96 97.9 09/25/16 13:32 85 128/61 I & O Intake and Output 09/26/16 07:00 Intake Total 168 ml Output Total 600 ml Balance -432 ml Intake Oral 168 ml Output Urine Total 600 ml # Voids 1 PHYSICAL EXAM Physical Exam no change ASSESSMENT/PLAN Assessment/Plan 1. Cerebrovascular accident affecting right upper extremity. 2. weakness thumb and index finger RUE more than rest of finger ? radiculopathy ? CTS making weakness more prominent index and thumb fingers 2. Chronic obstructive pulmonary disease and emphysema. 3. History of stress incontinence. 4. History of deep venous thrombosis. carotid ok, echo pending, continue PT, check MRI c spine , plan discharge in AM Problems: COMMENT Lab Laboratory Tests Test 09/25/16 15:00 09/26/16 03:40 Erythrocyte Sedimentation Rate 4 (0-25) C-Reactive Protein, Quantitative 4.9mg/L (0-3.3) White Blood Count 7.8x10^3/uL (4.0-11.0) Red Blood Count 4.32x10^6/uL (3.50-5.40) Hemoglobin 11.7g/dL (12.0-15.5) Hematocrit 36.7% (36.0-47.0) Mean Corpuscular Volume 85fL (79-100) Mean Corpuscular Hemoglobin 27pg (25-35) Mean Corpuscular Hemoglobin Concent 32g/dL (31-37) Red Cell Distribution Width 15.2% (11.5-14.5) Platelet Count 311x10^3/uL (140-400) Sodium Level 146mmol/L (136-145) Potassium Level 4.3mmol/L (3.5-5.1) Chloride Level 108mmol/L (98-107) Carbon Dioxide Level 30mmol/L (21-32) Anion Gap 8 (6-14) Blood Urea Nitrogen 18mg/dL (7-20) Creatinine 0.9mg/dL (0.6-1.0) Estimated GFR (Cockcroft-Gault) 59.4 BUN/Creatinine Ratio 20 (6-20) Glucose Level 106mg/dL (70-99) Calcium Level 8.9mg/dL (8.5-10.1) Total Bilirubin 0.3mg/dL (0.2-1.0) Aspartate Amino Transf (AST/SGOT) 10U/L (15-37) Alanine Aminotransferase (ALT/SGPT) 12U/L (14-59) Alkaline Phosphatase 70U/L (46-116) Total Protein 5.1g/dL (6.4-8.2) Albumin 2.7g/dL (3.4-5.0) Albumin/Globulin Ratio 1.1 (1.0-1.7) JOSE MURPHY MD Sep 26, 2016 11:45
--- NOTE | 2016-09-26 15:38 | RAD ---
PROCEDURE MRI cervical spine without contrast. HISTORY Right 1st and 2nd digits numbness, weakness of index finger and thumb of the right hand TECHNIQUE Multiplanar, multi sequential non contrast MR imaging was performed of the cervical spine. COMPARISON None FINDINGS There is some motion degradation. Cervical cord caliber is within limits without obvious or expansile signal abnormality, limited evaluation for subtle signal change due to artifact. There is no significant abnormality of the cervical medullary junction. There is minimal mucosal thickening of the visualized maxillary sinuses. There is no significant focal marrow edema. Cervical vertebral body stature and AP alignment are adequate. There is mild to moderate degenerative disc disease greater posteriorly at C5-C6 and C6-7. C2-C3: Spinal canal and neural foramina are adequate. C3-4: Spinal canal and the neural foramina are adequate. C4-C5: Spinal canal and neural foramina are adequate. There is moderate right facet degenerative change. C5-C6: There is negligible disc osteophyte complex. There is very minimal uncovertebral degenerative change. Neural foramina are not significantly narrowed. Spinal canal is adequate. C6-7: There is negligible disc osteophyte complex. There is likely mild to moderate narrowing of the right neural foramen in part from uncovertebral degenerative change, left neural foramen not obviously narrowed. C7-T1: Spinal canal and neural foramina are adequate. IMPRESSION 1. Exam is degraded by motion. There is [id number]-ldxfphtd degenerative disc disease greater posteriorly at C5-C6 and C6-7, minimal spondylosis. There is no significant cervical spinal stenosis. There is likely mild to moderate narrowing of the right C6-7 neural foramen in part from uncovertebral degenerative change. Electronically signed by: Mo Graham MD (Sep 26, 2016 15:37:03)
[2016-09-26 19:00] VITALS: BP 125/62
--- NOTE | 2016-09-26 19:45 | CARD ---
APPROVED REPORT EXAM: Two-dimensional and M-mode echocardiogram with Doppler and color Doppler. Other Information Quality : Good INDICATION CVA/TIA 2D DIMENSIONS RVDd2.7 (2.9-3.5cm)Left Atrium(2D)3.4 (1.6-4.0cm) IVSd1.0 (0.7-1.1cm)Aortic Root(2D)3.2 (2.0-3.7cm) LVDd4.5 (3.9-5.9cm)LVOT Diameter2.0 (1.8-2.4cm) PWd0.9 (0.7-1.1cm)LVDs2.8 (2.5-4.0cm) FS (%) 30.0 %SV64.4 ml LVEF(%)60.0 (>50%) Aortic Valve AoV Peak Primitivo.109.8cm/sAoV VTI21.2cm AO Peak GR.4.8mmHgLVOT VTI 15.31cm AO Mean GR.3mmHgAVA (VTI)2.20cm2 Mitral Valve MV E Isufranu45.9cm/sMV DECEL [id number] MV A Ygirihrq798.8cm/sE/A Ratio0.5 TDI Lateral E' P. V4.96cm/sMedial E' P. V4.38cm/s E/Lateral E'11.3E/Medial E'12.8 Pulmonary Vein S1 Lfvxrwbi09.9cm/sS2 Bfbpsgfq35.45cm/s D2 Utsahbtb70.5cm/sPVa [id number] LEFT VENTRICLE The left ventricle is normal size. There is normal left ventricular wall thickness. The left ventricu lar systolic function is normal and the ejection fraction is within normal range. The Ejection Fracti on is 55-60%. There is normal LV segmental wall motion. Transmitral Doppler flow pattern is Grade I-a bnormal relaxation pattern. RIGHT VENTRICLE The right ventricle is normal size. The right ventricular systolic function is normal. ATRIA The left atrium size is normal. The right atrium size is normal. The interatrial septum is intact wit h no evidence for an atrial septal defect or patent foramen ovale as noted on 2-D or Doppler imaging. AORTIC VALVE The aortic valve is calcified but opens well. Doppler and Color Flow revealed no significant aortic r egurgitation. There is no significant aortic valvular stenosis. MITRAL VALVE The mitral valve is calcified but opens well. Mitral annular calcification is mild. There is no evide nce of mitral valve prolapse. There is no mitral valve stenosis. Doppler and Color-flow revealed trac e mitral regurgitation. TRICUSPID VALVE The tricuspid valve is normal in structure and function. Doppler and Color Flow revealed no tricuspid valve regurgitation noted. There is no tricuspid valve stenosis. PULMONIC VALVE The pulmonary valve is normal in structure and function. Doppler and Color Flow revealed no pulmonic valvular regurgitation. There is no pulmonic valvular stenosis. GREAT VESSELS The aortic root is normal in size. The ascending aorta is normal in size. The IVC is normal in size a nd collapses >50% with inspiration. PERICARDIAL EFFUSION There is no evidence of significant pericardial effusion. Critical Notification Critical Value: No <Conclusion> The left ventricle is normal size. There is normal left ventricular wall thickness. The left ventricular systolic function is normal and the ejection fraction is within normal range. The Ejection Fraction is 55-60%. Transmitral Doppler flow pattern is Grade I-abnormal relaxation pattern. There is no evidence of significant pericardial effusion. There is no mitral stenosis and a trace mitral regurgitation The left atrium is of a normal size. There is no aortic stenosis or regurgitation. The right ventricle is of a normal size with normal systolic function No tricuspid regurgitation was seen to be able to evaluate the pulmanary artery pressure. The pulmonic valve was normal IMPRESSION NO SOURCE OF POSSIBLE EMBOLIZATION SEEN ON THIS TTE TO EXPLAIN CVA
[2016-09-26] MEDS: ATORVASTATIN CALCIUM 10 MG TABLET. PO SCH (20:54)
[2016-09-26 23:00] VITALS: BP 130/75
[2016-09-27 03:00] VITALS: BP 133/64
[2016-09-27 07:00] VITALS: BP 107/62
[2016-09-27] MEDS ORDERED: ATOR10TA60 PO (09:20)
[2016-09-27] MEDS ORDERED: ASPI81TA44 PO (09:20)
[2016-09-27] MEDS ORDERED: LOSA25TA PO (09:20)
--- NOTE | 2016-09-27 09:45 | PDOC ---
SUBJECTIVE Subjective feels better, moving index and thumb fingers better OBJECTIVE Vital Signs Vital Signs Date Time Temp Pulse Resp B/P Pulse Ox O2 Delivery O2 Flow Rate FiO2 09/27/16 07:00 97.7 85 18 107/62 96 Nasal Cannula 2.0 97.7 09/27/16 03:00 99.0 87 18 133/64 97 Room Air 99.0 09/26/16 23:00 99.4 90 18 130/75 90 Room Air 99.4 09/26/16 20:00 Nasal Cannula 2.0 09/26/16 19:00 97.9 82 18 125/62 94 Room Air 97.9 09/26/16 10:34 97.9 82 16 126/60 94 Nasal Cannula 2.0 97.9 I & O Intake and Output 09/27/16 07:00 Intake Total 1320 ml Output Total 1350 ml Balance -30 ml Intake Oral 1320 ml Output Urine Total 1350 ml PHYSICAL EXAM 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
--- NOTE | 2016-09-27 09:48 | PDOC3 ---
Discharge Summary* Date of Admission: Sep 24, 2016 Date of Discharge: Sep 27, 2016 Admitting Diagnosis Problems Medical Problems: (1) Muscle weakness of right upper extremity Status: Acute (2) Stroke Status: Acute Final Diagnosis 1. Cerebrovascular accident affecting right upper extremity. 2. Chronic obstructive pulmonary disease and emphysema. 3. History of stress incontinence. 4. History of deep venous thrombosis. Problems Medical Problems: (1) Muscle weakness of right upper extremity Status: Acute (2) Stroke Status: Acute CONSULTS Neurology Procedures CT head MRI brain MRI cervical spine Carotid doppler echocardiogrm antcoagulation work up , protein Cand S, YARI, anti phospholipid AB and anti thrombin pending Brief Hospital Course Ms. White is a 86 old [sex] who presented with [ ] Disposition/Orders: D/C to Home w/ HH CONDITION AT DISCHARGE: Improved Diet: 2 gr sodium, Cardiac Scheduled Aspirin (Children's Aspirin) 162 MG PO DAILYWBKFT Atorvastatin Calcium (Atorvastatin Calcium) 10 MG PO QHS Losartan Potassium (Cozaar) 25 MG PO DAILY FOLLOW UP APPOINTMENT: Dr. Rincon next week Time Spent Total time spent with patient [] minutes for coordination of care, counseling, and education. JOSE MURPHY MD Sep 27, 2016 09:48
[2016-09-27] MEDS: ASPIRIN 81 MG TAB.CHEW PO SCH (10:09)
[2016-09-27] MEDS: LOSARTAN POTASSIUM 25 MG TABLET. PO SCH (10:10)
--- NOTE | 2016-09-27 10:25 | PDOC ---
PROGRESS NOTES Assessment Problems Medical Problems: (1) Muscle weakness of right upper extremity Status: Acute (2) Stroke Status: Acute CVA, left parietal cortical, etiology unknown Plan Aspirin Statin Home today Rehab as needed F/U with Neurology as needed Subjective She says she's feeling much better, does not even think she needs therapy. She wants to go home. Objective Vital Signs Date Time Temp Pulse Resp B/P Pulse Ox O2 Delivery O2 Flow Rate FiO2 09/27/16 10:10 85 107/62 09/27/16 08:00 Nasal Cannula 2.0 09/27/16 07:00 97.7 18 96 97.7 Intake and Output 09/27/16 07:00 Intake Total 1320 ml Output Total 1350 ml Balance -30 ml Intake Oral 1320 ml Output Urine Total 1350 ml PHYSICAL EXAM Alert. Oriented to time, place and person. PERRL. EOMI. CN: no focal findings. Muscle tone: normal. Muscle strength: 5-/5 right hand, otherwise 5/5 DTR: 2+ Plantar reflex: flexor Gait: not examined in bed. Sensory exam: no abnormal findings. No cerebellar signs elicited. Review of Relevant I have reviewed the following items jaleel (where applicable) has been applied. Labs Laboratory Tests Test 09/25/16 15:00 09/26/16 03:40 Erythrocyte Sedimentation Rate 4 (0-25) Hemoglobin A1c 5.2% (4.8-5.6) C-Reactive Protein, Quantitative 4.9mg/L (0-3.3) White Blood Count 7.8x10^3/uL (4.0-11.0) Red Blood Count 4.32x10^6/uL (3.50-5.40) Hemoglobin 11.7g/dL (12.0-15.5) Hematocrit 36.7% (36.0-47.0) Mean Corpuscular Volume 85fL (79-100) Mean Corpuscular Hemoglobin 27pg (25-35) Mean Corpuscular Hemoglobin Concent 32g/dL (31-37) Red Cell Distribution Width 15.2% (11.5-14.5) Platelet Count 311x10^3/uL (140-400) Sodium Level 146mmol/L (136-145) Potassium Level 4.3mmol/L (3.5-5.1) Chloride Level 108mmol/L (98-107) Carbon Dioxide Level 30mmol/L (21-32) Anion Gap 8 (6-14) Blood Urea Nitrogen 18mg/dL (7-20) Creatinine 0.9mg/dL (0.6-1.0) Estimated GFR (Cockcroft-Gault) 59.4 BUN/Creatinine Ratio 20 (6-20) Glucose Level 106mg/dL (70-99) Calcium Level 8.9mg/dL (8.5-10.1) Total Bilirubin 0.3mg/dL (0.2-1.0) Aspartate Amino Transf (AST/SGOT) 10U/L (15-37) Alanine Aminotransferase (ALT/SGPT) 12U/L (14-59) Alkaline Phosphatase 70U/L (46-116) Total Protein 5.1g/dL (6.4-8.2) Albumin 2.7g/dL (3.4-5.0) Albumin/Globulin Ratio 1.1 (1.0-1.7) Medications Current Medications Labetalol HCl (Normodyne) 10 mg 1X ONCE IVP Last administered on 09/24/16 22: 08; Start 09/24/16 at 22:00; Stop 09/24/16 at 22:01; Status DC Aspirin (Novalys Aspirin) 325 mg 1X ONCE PO Last administered on 09/24/16 23:30 ; Start 09/24/16 at 23:15; Stop 09/24/16 at 23:16; Status DC Ondansetron HCl (Zofran) 4 mg PRN Q8HRS PRN IV NAUSEA/VOMITING; Start 09/24/16 at 23:45; Stop 09/25/16 at 23:44; Status DC Acetaminophen (Tylenol) 650 mg PRN Q4HRS PRN PO FEVER; Start 09/24/16 at 23:45 ; Stop 09/25/16 at 23:44; Status DC Labetalol HCl (Normodyne) 10 mg PRN Q1HR PRN IVP ELEVATED BP, SEE COMMENTS; Start 09/24/16 at 23:45 Gadobutrol (Gadavist) 7.5 mmol 1X ONCE IV Last administered on 09/25/16 12:26 ; Start 09/25/16 at 12:15; Stop 09/25/16 at 12:16; Status DC Losartan Potassium (Cozaar) 25 mg DAILY PO Last administered on 09/27/16 10:10 ; Start 09/25/16 at 13:00 Aspirin (Children'S Aspirin) 162 mg DAILYWBKFT PO Last administered on 10:09; Start 09/26/16 at 08:00 Atorvastatin Calcium (Lipitor) 10 mg QHS PO Last administered on 09/26/16 20: 54; Start 09/25/16 at 21:00 Active Scripts Active Cozaar (Losartan Potassium) 25 Mg Tablet 25 Mg PO DAILY 30 Days Children's Aspirin (Aspirin) 81 Mg Tab.chew 162 Mg PO DAILYWBKFT 30 Days Atorvastatin Calcium 10 Mg Tablet 10 Mg PO QHS 30 Days Vitals/I & O Vital Sign - Last 24 Hours 09/26/16 09/26/16 09/26/16 09/26/16 10:34 19:00 20:00 23:00 Temp 97.9 97.9 99.4 97.9 97.9 99.4 Pulse 82 82 90 Resp 16 18 18 B/P 126/60 125/62 130/75 Pulse Ox 94 94 90 O2 Delivery Nasal Cannula Room Air Nasal Cannula Room Air O2 Flow Rate 2.0 2.0 09/27/16 09/27/16 09/27/16 09/27/16 03:00 07:00 08:00 10:10 Temp 99.0 97.7 99.0 97.7 Pulse 87 85 85 Resp 18 B/P 133/64 107/62 107/62 Pulse Ox 97 96 O2 Delivery Room Air Nasal Cannula Nasal Cannula O2 Flow Rate 2.0 2.0 Intake and Output 09/26/16 09/26/16 09/27/16 15:00 23:00 07:00 Intake Total 300 ml 820 ml 200 ml Output Total 1200 ml 150 ml Balance 300 ml -380 ml 50 ml Images Echo: The left ventricle is normal size. There is normal left ventricular wall thickness. The left ventricular systolic function is normal and the ejection fraction is within normal range. The Ejection Fraction is 55-60%. Transmitral Doppler flow pattern is Grade I-abnormal relaxation pattern. There is no evidence of significant pericardial effusion. There is no mitral stenosis and a trace mitral regurgitation The left atrium is of a normal size. There is no aortic stenosis or regurgitation. The right ventricle is of a normal size with normal systolic function No tricuspid regurgitation was seen to be able to evaluate the pulmanary artery pressure. The pulmonic valve was normal IMPRESSION NO SOURCE OF POSSIBLE EMBOLIZATION SEEN ON THIS TTE TO EXPLAIN CVA JAQUAN DOE MD Sep 27, 2016 10:25
[2016-09-27 11:00] VITALS: BP 117/56
[2016-09-30 07:40] LABS: PROTEIN C ACTIVITY SEE SEPARATE REPORT; PROTEIN S ACTIVITY SEE SEPARATE REPORT
== END 2016-09-27 14:15 | disposition home health service (06) | DRG 65 ==
LOC: ER 21:33 → 6 SOUTH 23:31
PROVIDERS: ADMIT Internal Medicine; ATTEND Internal Medicine
DX: I63.9 Cerebral infarction, unspecified (principal); E44.1 Mild protein-calorie malnutrition; G81.91 Hemiplegia, unspecified affecting right dominant side; M19.90 Unspecified osteoarthritis, unspecified site; Z79.01 Long term (current) use of anticoagulants; Z82.49 Family history of ischemic heart disease and other diseases of the circulatory system; Z82.5 Family history of asthma and other chronic lower respiratory diseases; Z83.3 Family history of diabetes mellitus; Z86.718 Personal history of other venous thrombosis and embolism; Z87.891 Personal history of nicotine dependence; Z98.51 Tubal ligation status; Z99.81 Dependence on supplemental oxygen; Z87.440 Personal history of urinary (tract) infections; Z88.1 Allergy status to other antibiotic agents; Z91.012 Allergy to eggs; Z88.5 Allergy status to narcotic agent; Z88.0 Allergy status to penicillin; Z88.8 Allergy status to other drugs, medicaments and biological substances; Z91.018 Allergy to other foods; Z90.49 Acquired absence of other specified parts of digestive tract; Z79.82 Long term (current) use of aspirin; Z68.29 Body mass index [BMI] 29.0-29.9, adult; J44.9 Chronic obstructive pulmonary disease, unspecified
CPT/HCPCS: 36415; 70450; 70553; 71010; 72141; 80048; 80053; 80061; 82947; 83036; 85027; 85610; 85651; 85730; 86140; 93005; 93306; 93880; 93971; 96374; 96375; J3490; 99285-25; A9585

== ENCOUNTER 2016-12-04 01:26 | Emergency (ER) | payer MEDICARE ==
[~2016-12-04] VITALS: Ht 160 cm; Wt 74.4 kg
[~2016-12-04 01:26] MED LIST changes: +ASPI81TA44 PO; +ATOR10TA60 PO; +LOSA25TA PO; +WARF-78 PO; -WARF3TAB PO; +WARF3TAB54 PO; -WARF5TAB PO
[2016-12-04] MEDS ORDERED: NEOMY/BACITR/POLYMYXIN OINT PACKET. TP ONE (02:15)
[2016-12-04] MEDS ORDERED: SILVER NITRATE STICK TP ONE (02:15)
--- NOTE | 2016-12-04 02:46 | PHYS DOC ---
Past Medical History Past Medical History: COPD, DVT, Stroke Additional Past Medical Histor: WEARS O2 AT HOME Past Surgical History: Cholecystectomy Alcohol Use: None Drug Use: None Adult General Chief Complaint Chief Complaint: NOSEBLEED HPI HPI Patient is a 86 year old female who presents here today secondary to epistaxis. Patient for she's hadfor 2 days of been intermittent. Patient has any fevers shakes chills nausea vomiting diarrhea. Patient has any chest pain or shortness of breath. Patient reports she takes an aspirin a day. Patient history of hypertension no diabetes other COPD no other problems. Patient does not smoke drink or do any drugs. Patient has any melena or bright red blood per rectum. She denies any easy bleeding from her gums or easy bruising. Patient's physical exam was consistent with bleeding from her left naris. Patient had no rashes. Patient's hospital course was significant for normal labs. Patient not having any evidence of any bleeding issues. Patient's platelet count was normal CBC was normal. Procedure: Patient's left naris was cauterized with 2 sticks of silver nitrate with significant improvement in bleeding. Patient was still having visual episodes of bleeding from her left naris. Utilizing 3 mL of viscous lidocaine was instilled into her left naris. After viscous lidocaine was inserted a nasal tampon was placed into her hirsch and infiltrated with 3 mL of 1% Lidoderm with epi. Patient was monitored in the ER for approximately 30 minutes post placement and had no further episodes of epistaxis. Patient was discharged home in stable condition with prescription for Keflex was instructed to follow-up with her primary care physician in 3-5 days for removal of her tampon. Review of Systems Review of Systems Constitutional: Denies fever or chills [] Eyes: Denies change in visual acuity, redness, or eye pain [] All other review systems are negative except as documented in history of present illness. Current Medications Current Medications Current Medications Medications (Trade) Dose Ordered Sig/Teodoro Start Time Stop Time Status Last Admin Dose Admin Neomycin/ Polymyxin/ Bacitracin (Triple Antibiotic Ointment) 2 pkt 1X ONCE 12/04/16 02:15 12/04/16 02:16 DC 12/04/16 02:22 2 PKT Silver Nitrate/ Potassium Nitrate 3 each 1X ONCE 12/04/16 02:15 12/04/16 02:16 DC 12/04/16 02:23 3 EACH Allergies Allergies Allergies Coded Allergies Type Severity Reaction Last Updated Verified codeine Allergy Severe Anaphylaxis 04/08/15 Yes nitrofurantoin Allergy Severe Shortness of Air 04/09/15 Yes Penicillins Allergy Intermediate Rash 04/08/15 Yes ciprofloxacin Adverse Reaction Intermediate DOES NOT WORK 04/09/15 Yes nut - unspecified Adverse Reaction Intermediate DIVERTICULITIS 09/25/16 Yes egg Adverse Reaction Unknown heartburn, indigestion 01/05/16 Yes onion Adverse Reaction Unknown STOMACH ACHE 01/08/16 No Physical Exam Physical Exam Constitutional: Well developed, well nourished, no acute distress, non-toxic appearance. [] HENT: Normocephalic, atraumatic, bilateral external ears normal, oropharynx moist, no oral exudates Needle exam: See above. Eyes: PERRLA, EOMI, conjunctiva normal, no discharge. [] Neck: Normal range of motion, no tenderness, supple, no stridor. [] Cardiovascular:Heart rate regular rhythm, Lungs & Thorax: Bilateral breath sounds clear to auscultation [] Abdomen: Bowel sounds normal, soft, no tenderness, no masses, no pulsatile masses. [] Skin: Warm, dry, no erythema, no rash. [] Back: No tenderness, no CVA tenderness. [] Extremities: No tenderness, no cyanosis, no clubbing, ROM intact, no edema. [] Neurologic: Alert and oriented X 3, normal motor function, normal sensory function, no focal deficits noted. [] Psychologic: Affect normal, judgement normal, mood normal. [] Current Patient Data Vital Signs Vital Signs Date Time Temp Pulse Resp B/P (MAP) Pulse Ox O2 Delivery O2 Flow Rate FiO2 12/04/16 03:30 84 22 148/76 (100) 90 Nasal Cannula 2.0 12/04/16 01:35 98.5 98.5 Lab Values Laboratory Tests Test 12/04/16 03:00 White Blood Count 11.8 x10^3/uL (4.0-11.0) H Red Blood Count 4.39 x10^6/uL (3.50-5.40) Hemoglobin 11.9 g/dL (12.0-15.5) L Hematocrit 37.7 % (36.0-47.0) Mean Corpuscular Volume 86 fL (79-100) Mean Corpuscular Hemoglobin 27 pg (25-35) Mean Corpuscular Hemoglobin Concent 32 g/dL (31-37) Red Cell Distribution Width 15.1 % (11.5-14.5) H Platelet Count 307 x10^3/uL (140-400) Laboratory Tests 12/04/16 03:00 EKG EKG [] Radiology/Procedures Radiology/Procedures [] Course & Med Decision Making Course & Med Decision Making Pertinent Labs and Imaging studies reviewed. (See chart for details) [] Dragon Disclaimer Dragon Disclaimer This electronic medical record was generated, in whole or in part, using a voice recognition dictation system. Departure Departure Impression: Primary Impression: Epistaxis Disposition: HOME, SELF-CARE Condition: IMPROVED Referrals: OSMAR JULIAN MD (PCP) Patient Instructions: Nosebleed Additional Instructions: Apply Vaseline twice a day both nares. Return to the ER if you have further nosebleeds that's not resolved with a nasal clamp that you were given. IVÁN NEAL MD December 04, 2016 02:46
[2016-12-04 03:09] LABS: HEMATOCRIT 37.7 % (36.0-47.0); HEMOGLOBIN 11.9 g/dL (12.0-15.5); RED BLOOD COUNT 4.39 x10^6/uL (3.50-5.40); RED CELL DISTRIBUTION WIDTH 15.1 % (11.5-14.5); WHITE BLOOD COUNT 11.8 x10^3/uL (4.0-11.0)
[2016-12-04 03:30] VITALS: BP 148/76
--- NOTE | 2016-12-04 12:08 | EKG ---
[facility] [address] [place] [id number] Test Date: 2016-12-04 Test Time: 01:40:15 Pat Name: LEXX MAGANA Department: Room: Gender: F Rigger: HELIO : 1930 Requested By: IVÁN NEAL Order Number: [id number] Reading MD: Pauly Easley Measurements Intervals [place] Rate: 101 P: -22 VA: 178 QRS: 9 QRSD: 78 T: 37 QT: 362 QTc: 470 Interpretive Statements SINUS TACHYCARDIA NON SPECIFIC T ABNORMALITY Electronically Signed On 12-04-2016 18:24:42 CDT by Pauly Easley
== END 2016-12-04 03:37 | disposition home or self-care (01) ==
LOC: ER 01:26
DX: R04.0 Epistaxis (principal); J44.9 Chronic obstructive pulmonary disease, unspecified; Z86.718 Personal history of other venous thrombosis and embolism; Z86.73 Personal history of transient ischemic attack (TIA), and cerebral infarction without residual deficits; Z90.49 Acquired absence of other specified parts of digestive tract; Z88.5 Allergy status to narcotic agent; Z88.0 Allergy status to penicillin; Z88.1 Allergy status to other antibiotic agents; Z91.012 Allergy to eggs; Z91.018 Allergy to other foods
CPT/HCPCS: 30901; 36415; 85027; 93005; 99285-25

== ENCOUNTER 2018-01-03 05:34 | Emergency (ER) | payer MEDICARE ==
[2018-01-03] MEDS: MORPHINE SULFATE 4 MG/ML DISP.SYRIN. IV (06:30)
[2018-01-03 06:32] LABS: BASO % 0 % (0-3); EOS % 0 % (0-3); HEMATOCRIT 39.5 % (36.0-47.0); HEMOGLOBIN 12.9 g/dL (12.0-15.5); LYMPH # 0.4 x10^3/uL (1.0-4.8); LYMPH % 4 % (24-48); MEAN CORPUSCULAR HEMOGLOBIN 27 pg (25-35); MEAN CORPUSCULAR HGB CONC 33 g/dL (31-37); MEAN CORPUSCULAR VOLUME 81 fL (79-100); MONO # 0.4 x10^3/uL (0.0-1.1); MONO % 3 % (0-9); NEUT # 9.7 x10^3uL (1.8-7.7); NEUT % 92 % (31-73); PLATELET COUNT 362 x10^3/uL (140-400); RED BLOOD COUNT 4.85 x10^6/uL (3.50-5.40); RED CELL DISTRIBUTION WIDTH 15.3 % (11.5-14.5); WHITE BLOOD COUNT 10.5 x10^3/uL (4.0-11.0)
[2018-01-03 06:36] LABS: ADD MAN DIFF? YES
[2018-01-03 06:38] LABS: ANION GAP 7 (6-14); BLOOD UREA NITROGEN 19 mg/dL (7-20); BUN/CREATININE RATIO 19 (6-20); CALCIUM 9.2 mg/dL (8.5-10.1); CARBON DIOXIDE 32 mmol/L (21-32); CHLORIDE 104 mmol/L (98-107); GFR 52.4; GLUCOSE 142 mg/dL (70-99); POTASSIUM 4.2 mmol/L (3.5-5.1); SODIUM 143 mmol/L (136-145)
[2018-01-03 06:44] LABS: ALBUMIN 3.6 g/dL (3.4-5.0); ALBUMIN/GLOBULIN RATIO 0.9 (1.0-1.7); ALK PHOS 105 U/L (46-116); ALT (SGPT) 21 U/L (14-59); AST (SGOT) 16 U/L (15-37); LIPASE 79 U/L (73-393); TOTAL BILIRUBIN 0.8 mg/dL (0.2-1.0); TOTAL PROTEIN 7.8 g/dL (6.4-8.2)
[2018-01-03] MEDS ORDERED: CONTRAST GIVEN. MC (06:45)
[2018-01-03] MEDS: IOHEXOL 300 MG/ML 100ML VIAL. IV (06:45)
[2018-01-03 06:51] LABS: LACTIC ACID 1.6 mmol/L (0.4-2.0)
[2018-01-03 08:08] LABS: % BANDS 3 % (0-9); % LYMPHS 2 % (24-48); % MONOS 2 % (0-10); % SEGS 93 % (35-66)
[2018-01-03 08:09] LABS: PLT ESTIMATE ADEQUATE (ADEQUATE)
[2018-01-03 08:21] LABS: BILIRUBIN,URINE NEGATIVE (NEG); CLARITY,URINE CLEAR; COLOR,URINE YELLOW; GLUCOSE,URINE NEGATIVE (NEG); NITRITE,URINE NEGATIVE (NEG); PROTEIN,URINE NEGATIVE (NEG-TRACE)
[2018-01-03 08:25] LABS: AMORPHOUS SEDIMENT,UR PRESENT /HPF; BACTERIA,URINE FEW /HPF (0-FEW); RBC,URINE OCC /HPF (0-2); SQUAMOUS EPITHELIAL CELL,UR OCC /LPF
== END 2018-01-03 08:57 | disposition home or self-care (01) ==
LOC: ER 05:34
DX: K57.92 Diverticulitis of intestine, part unspecified, without perforation or abscess without bleeding (principal); J44.9 Chronic obstructive pulmonary disease, unspecified; Z90.89 Acquired absence of other organs; Z98.51 Tubal ligation status; Z88.0 Allergy status to penicillin; Z88.1 Allergy status to other antibiotic agents; Z88.6 Allergy status to analgesic agent; Z91.012 Allergy to eggs; Z91.010 Allergy to peanuts
CPT/HCPCS: 36415; 51701; 74177; 80053; 81001; 83605; 83690; 85007; 85025; 99285-25; Q9967

== ENCOUNTER 2018-05-11 19:50 | Inpatient (IN) | payer MEDICARE ==
[~2018-05-11] VITALS: Ht 160 cm; Wt 71.7 kg
[~2018-05-11 19:50] MED LIST changes: +ACET325T9 PO; -ASPI81TA44 PO; +ASPI81TA59 PO; +CIPR500T94 PO
[2018-05-11] MEDS ORDERED: IV NORMAL SALINE 1000ML BAG 1,000 ML IV ONE (20:45)
[2018-05-11 20:52] LABS: BILIRUBIN,URINE SMALL (NEG); CLARITY,URINE CLOUDY; COLOR,URINE AMBER; NITRITE,URINE POSITIVE (NEG); PROTEIN,URINE 30 mg/dL (NEG-TRACE)
[2018-05-11 21:01] LABS: RBC,URINE 0 /HPF (0-2); WBC,URINE >40 /HPF (0-4)
[2018-05-11 21:02] LABS: BACTERIA,URINE MANY /HPF (0-FEW); SQUAMOUS EPITHELIAL CELL,UR FEW /LPF
[2018-05-11 21:13] LABS: BASO % 1 % (0-3); EOS # 0.2 x10^3/uL (0.0-0.7); EOS % 3 % (0-3); HEMATOCRIT 31.9 % (36.0-47.0); HEMOGLOBIN 10.4 g/dL (12.0-15.5); LYMPH # 0.5 x10^3/uL (1.0-4.8); LYMPH % 8 % (24-48); MEAN CORPUSCULAR HEMOGLOBIN 27 pg (25-35); MEAN CORPUSCULAR HGB CONC 33 g/dL (31-37); MEAN CORPUSCULAR VOLUME 82 fL (79-100); MONO # 0.6 x10^3/uL (0.0-1.1); MONO % 11 % (0-9); NEUT # 4.4 x10^3uL (1.8-7.7); NEUT % 77 % (31-73); PLATELET COUNT 276 x10^3/uL (140-400); RED BLOOD COUNT 3.91 x10^6/uL (3.50-5.40); RED CELL DISTRIBUTION WIDTH 15.8 % (11.5-14.5); WHITE BLOOD COUNT 5.7 x10^3/uL (4.0-11.0)
[2018-05-11 21:22] LABS: CALCIUM 8.4 mg/dL (8.5-10.1); CREATININE 0.9 mg/dL (0.6-1.0); GFR 59.1; POTASSIUM 3.4 mmol/L (3.5-5.1)
[2018-05-11 21:28] LABS: ALBUMIN 2.6 g/dL (3.4-5.0); ALBUMIN/GLOBULIN RATIO 0.7 (1.0-1.7); TOTAL BILIRUBIN 0.5 mg/dL (0.2-1.0); TOTAL PROTEIN 6.1 g/dL (6.4-8.2)
--- NOTE | 2018-05-11 21:29 | PHYS DOC ---
Past Medical History Past Medical History: COPD Additional Past Medical Histor: WEARS O2 AT HOME Past Surgical History: Appendectomy, Cholecystectomy, Tubal ligation Alcohol Use: None Drug Use: None Adult General Chief Complaint Chief Complaint: ABDOMINAL PAIN HPI HPI Patient is a 88 year old female who presents with worsening abdominal pain and diarrhea for 5 days. Patient states that she has had a slimy film over her stool and that is looser than normal with increasing abdominal pain since Monday. She went to see her primary care on Monday and they tried to collect a stool sample but she was unable to go at that time. She finally collected one at home yesterday and turned it in and developed worsening abdominal pain with change in her bowel habits today. Patient does have a history also of diverticulitis in the past as well as C. difficile. Patient denies any recent antibiotic use. Patient denies vomiting but does live at home and states that she's too weak to stand and care for herself at this time. Patient was admitted in December 2015 for multiresistant urinary tract infection with the following hospital course:[ Patient with a history of stress incontinence] DATE OF ADMISSION: 01/05/2016 DATE OF DISCHARGE: 01/08/2016 PRIMARY DIAGNOSIS: Multi-drug resistant urinary tract infection. ADDITIONAL DIAGNOSES: 1. Chronic obstructive pulmonary disease. 2. History of deep venous thrombosis on Coumadin. CHIEF COMPLAINT AND HISTORY OF PRESENT ILLNESS: This is an 85-year-old white female, who was admitted with urinary tract symptoms, which were unable to control with oral antibiotics. She was admitted for treatment with IV antibiotics, which interestingly was only sensitive to aminoglycosides and imipenem and it was Enterobacter cloacae as above. SUMMARY OF STAY: The patient was admitted and treated. Her symptoms rapidly resolved. She did develop a yeast infection, which was treated with Diflucan with improvement in symptoms of the same very rapidly. So, it was felt she could be dismissed after three days of treatment and this was done. Review of Systems Review of Systems Constitutional: Positive for fever or chills [] Eyes: Denies change in visual acuity, redness, or eye pain [] HENT: Denies nasal congestion or sore throat [] Respiratory: Denies cough or shortness of breath [] Cardiovascular: No additional information not addressed in HPI [] GI: Positive for abdominal pain, diarrhea, denies nausea, the vomiting, bloody stools [] : Denies dysuria or hematuria [] Musculoskeletal: Denies back pain or joint pain [] Integument: Denies rash or skin lesions [] Neurologic: Denies headache, focal weakness or sensory changes [] Endocrine: Denies polyuria or polydipsia [] All other systems were reviewed and found to be within normal limits, except as documented in this note. Current Medications Current Medications Current Medications Medications (Trade) Dose Ordered Sig/Teodoro Start Time Stop Time Status Last Admin Dose Admin Ceftriaxone Sodium 1 gm/ Dextrose 50 ml @ 100 mls/hr Q24H 05/12/18 01:00 UNV Ceftriaxone Sodium (Rocephin) 1 gm Q24H 05/12/18 23:00 Info (CONTRAST GIVEN -- Rx MONITORING) 1 each PRN DAILY PRN 05/11/18 21:45 05/13/18 21:44 Iohexol (Omnipaque 300 Mg/ml) 60 ml 1X ONCE 05/11/18 22:00 05/11/18 22:01 DC 05/11/18 21:53 60 ML Metronidazole 100 ml @ 100 mls/hr 1X ONCE 05/12/18 01:30 05/12/18 02:29 Sodium Chloride 1,000 ml @ 125 mls/hr 1X ONCE 05/11/18 20:45 05/12/18 04:44 05/11/18 20:56 125 MLS/HR Allergies Allergies Allergies Coded Allergies Type Severity Reaction Last Updated Verified codeine Allergy Severe Anaphylaxis 04/08/15 Yes nitrofurantoin Allergy Severe Shortness of Air 04/09/15 Yes Penicillins Allergy Intermediate Rash 04/08/15 Yes ciprofloxacin Adverse Reaction Intermediate DOES NOT WORK 04/09/15 Yes nut - unspecified Adverse Reaction Intermediate DIVERTICULITIS 09/25/16 Yes egg Adverse Reaction Unknown heartburn, indigestion 01/05/16 Yes onion Adverse Reaction Unknown STOMACH ACHE 01/08/16 No Physical Exam Physical Exam Constitutional: Well developed, well nourished, no acute distress, non-toxic appearance. [] HENT: Normocephalic, atraumatic, bilateral external ears normal, oropharynx moist, no oral exudates, nose normal. [] Eyes: PERRLA, EOMI, conjunctiva normal, no discharge. [] Neck: Normal range of motion, no tenderness, supple, no stridor. [] Cardiovascular:Heart rate regular rhythm, no murmur [] Lungs & Thorax: Bilateral breath sounds clear to auscultation [] Abdomen: Bowel sounds normal, soft, no tenderness, no masses, no pulsatile masses. [] Skin: Warm, dry, no erythema, no rash. [] Back: No tenderness, no CVA tenderness. [] Extremities: No tenderness, no cyanosis, no clubbing, ROM intact, no edema. [] Neurologic: Alert and oriented X 3, normal motor function, normal sensory function, no focal deficits noted. [] Psychologic: Affect normal, judgement normal, mood normal. [] Current Patient Data Vital Signs Vital Signs Date Time Temp Pulse Resp B/P (MAP) Pulse Ox O2 Delivery O2 Flow Rate FiO2 05/11/18 20:38 98.1 103 25 138/64 (88) 95 Room Air 98.1 Lab Values Laboratory Tests Test 05/11/18 20:17 05/11/18 21:00 Urine Collection Type Unknown Urine Color Vivienne Urine Clarity Cloudy Urine pH 6.0 Urine Specific [place] 1.020 Urine Protein 30 mg/dL (NEG-TRACE) Urine Glucose (UA) Negative mg/dL (NEG) Urine Ketones (Stick) Trace mg/dL (NEG) Urine Blood Trace (NEG) Urine Nitrite Positive (NEG) Urine Bilirubin Small (NEG) Urine Urobilinogen Dipstick 1.0 mg/dL (0.2 mg/dL) Urine Leukocyte Esterase Large (NEG) Urine RBC 0 /HPF (0-2) Urine WBC >40 /HPF (0-4) Urine Squamous Epithelial Cells Few /LPF Urine Bacteria Many /HPF (0-FEW) White Blood Count 5.7 x10^3/uL (4.0-11.0) Red Blood Count 3.91 x10^6/uL (3.50-5.40) Hemoglobin 10.4 g/dL (12.0-15.5) L Hematocrit 31.9 % (36.0-47.0) L Mean Corpuscular Volume 82 fL (79-100) Mean Corpuscular Hemoglobin 27 pg (25-35) Mean Corpuscular Hemoglobin Concent 33 g/dL (31-37) Red Cell Distribution Width 15.8 % (11.5-14.5) H Platelet Count 276 x10^3/uL (140-400) Neutrophils (%) (Auto) 77 % (31-73) H Lymphocytes (%) (Auto) 8 % (24-48) L Monocytes (%) (Auto) 11 % (0-9) H Eosinophils (%) (Auto) 3 % (0-3) Basophils (%) (Auto) 1 % (0-3) Neutrophils # (Auto) 4.4 x10^3uL (1.8-7.7) Lymphocytes # (Auto) 0.5 x10^3/uL (1.0-4.8) L Monocytes # (Auto) 0.6 x10^3/uL (0.0-1.1) Eosinophils # (Auto) 0.2 x10^3/uL (0.0-0.7) Basophils # (Auto) 0.0 x10^3/uL (0.0-0.2) Sodium Level 144 mmol/L (136-145) Potassium Level 3.4 mmol/L (3.5-5.1) L Chloride Level 104 mmol/L (98-107) Carbon Dioxide Level 32 mmol/L (21-32) Anion Gap 8 (6-14) Blood Urea Nitrogen 13 mg/dL (7-20) Creatinine 0.9 mg/dL (0.6-1.0) Estimated GFR (Cockcroft-Gault) 59.1 BUN/Creatinine Ratio 14 (6-20) Glucose Level 138 mg/dL (70-99) H Calcium Level 8.4 mg/dL (8.5-10.1) L Magnesium Level 2.0 mg/dL (1.8-2.4) Total Bilirubin 0.5 mg/dL (0.2-1.0) Aspartate Amino Transferase (AST) 17 U/L (15-37) Alanine Aminotransferase (ALT) 14 U/L (14-59) Alkaline Phosphatase 67 U/L (46-116) Total Protein 6.1 g/dL (6.4-8.2) L Albumin 2.6 g/dL (3.4-5.0) L Albumin/Globulin Ratio 0.7 (1.0-1.7) L Laboratory Tests 05/11/18 21:00 Laboratory Tests 05/11/18 21:00 EKG EKG [] Radiology/Procedures Radiology/Procedures [facility] [address] [place] [address] IMAGING REPORT Signed PATIENT: LXEX MAGANA ACCOUNT: [id number] : 1930 LOCATION: ER AGE: 88 SEX: F EXAM STATUS: REG ER ORD. PHYSICIAN: RENETTA LARSON MD REASON: WEak PROCEDURE: PORTABLE CHEST 1V EXAM: CHEST 1 VIEW. HISTORY: Shortness of breath, weakness. COMPARISON: 09/24/2016. FINDINGS: A frontal view of the chest is obtained. There are mildly increased interstitial opacities in both bases. The lungs are expanded to the 10th posterior ribs. There is no pneumothorax or clear pleural effusion. The heart is not enlarged. The central pulmonary arteries are prominent. IMPRESSION: 1. Mild interstitial opacities in the bases. Correlate for interstitial lung disease or atypical pneumonia. 2. Prominence of the central pulmonary artery suggests pulmonary arterial hypertension. 3. Hyperinflation. Correlate for chronic obstructive pulmonary disease. Electronically signed by: Gisselle Carbajal MD (05/11/2018 11:33 PM) [facility] DICTATED and SIGNED BY: HENRY CARBAJAL MD DATE: 05/11/18 2331 [facility] [address] [place] [address] IMAGING REPORT Signed PATIENT: LEXX MAGANA ACCOUNT: [id number] : 1930 LOCATION: ER AGE: 88 SEX: F EXAM STATUS: REG ER ORD. PHYSICIAN: RENETTA LARSON MD REASON: diarrhea, hx of diverticulitis PROCEDURE: CT ABD PELV W/ IV CONTRST ONLY ADDENDUM ADDENDUM: Small nodules bilaterally in the lung bases have been stable since 2014 and are likely benign. Electronically signed by: Gisselle Carbajal MD (05/11/2018 11:34 PM) [facility] DICTATED AND SIGNED BY: HENRY CARBAJAL MD DATE: 05/11/18 2336 CC: OSMAR RINCON MD; RENETTA LARSON MD ~ EXAM: CT ABDOMEN/PELVIS WITH CONTRAST. HISTORY: Diarrhea, diverticulitis, abdominal pain. TECHNIQUE: Computed tomography of the abdomen and pelvis was performed after the intravenous administration of 60 mL Omnipaque 300. COMPARISON: None. FINDINGS: Lung windows through the visualized portions of the bases reveal mild bronchial wall thickening suggesting acute or chronic bronchitis. There is a small hiatal hernia. There are calcifications of the aortic valve. Bone windows reveal no suspicious lesions. Wall thickening of the proximal sigmoid colon is consistent with mild to moderate diverticulitis. There is moderate diverticulosis diffusely throughout the colon. There is no obstruction. The appendix is not inflamed. The gallbladder is surgically absent. There are scattered calcified granulomas in the liver and spleen. The and adrenal glands and pancreas are unremarkable. A peripelvic cyst in the right kidney measures 3.0 cm. There are small peripelvic cysts in the left kidney. The uterus is surgically absent. The left ovary remains and contains a small cyst or follicle measuring 2.1 cm. This is unchanged since the prior study. There are no pathologically enlarged lymph nodes. There is diffuse bladder wall thickening. IMPRESSION: 1. Mild to moderate sigmoid diverticulitis. No drainable collection. 2. Small hiatal hernia. 3. Bronchial wall thickening in the lung bases is nonspecific but may reflect acute or chronic bronchitis. 4. Diffuse bladder wall thickening indicates chronic outlet obstruction or inflammation. Correlate with urinalysis. *One or more of the following individualized dose reduction techniques were utilized for this examination: 1. Automated exposure control. 2. Adjustment of the mA and/or kV according to patient size. 3. Use of iterative reconstruction technique. Electronically signed by: Gisselle Carbajal MD (05/11/2018 11:23 PM) [facility] DICTATED and SIGNED BY: HENRY CARBAJAL MD DATE: 05/11/18 9894 Course & Med Decision Making Course & Med Decision Making Pertinent Labs and Imaging studies reviewed. (See chart for details) Multiple calls the been made to Dr. Rincon and Dr Vines - we were informed that they're both out of town and therefore a discussion with the charge patient was decided to admit to the hospital at this time. [] Dragon Disclaimer Dragon Disclaimer This electronic medical record was generated, in whole or in part, using a voice recognition dictation system. Departure Departure Impression: Primary Impression: Diverticulitis Additional Impression: Urinary tract infection Disposition: 09 ADMITTED INPATIENT Admitting Physician: Xie. Payne Condition: STABLE Referrals: OSMAR RINCON MD (PCP) Problem Qualifiers RENETTA LARSON MD May 11, 2018 21:29
[2018-05-11] MEDS ORDERED: CONTRAST GIVEN. MC PRN (21:45)
[2018-05-11] MEDS ORDERED: IOHEXOL 300 MG/ML 100ML VIAL. IV ONE (22:00)
--- NOTE | 2018-05-11 23:26 | RAD ---
EXAM: CT ABDOMEN/PELVIS WITH CONTRAST. HISTORY: Diarrhea, diverticulitis, abdominal pain. TECHNIQUE: Computed tomography of the abdomen and pelvis was performed after the intravenous administration of 60 mL Omnipaque 300. COMPARISON: None. FINDINGS: Lung windows through the visualized portions of the bases reveal mild bronchial wall thickening suggesting acute or chronic bronchitis. There is a small hiatal hernia. There are calcifications of the aortic valve. Bone windows reveal no suspicious lesions. Wall thickening of the proximal sigmoid colon is consistent with mild to moderate diverticulitis. There is moderate diverticulosis diffusely throughout the colon. There is no obstruction. The appendix is not inflamed. The gallbladder is surgically absent. There are scattered calcified granulomas in the liver and spleen. The and adrenal glands and pancreas are unremarkable. A peripelvic cyst in the right kidney measures 3.0 cm. There are small peripelvic cysts in the left kidney. The uterus is surgically absent. The left ovary remains and contains a small cyst or follicle measuring 2.1 cm. This is unchanged since the prior study. There are no pathologically enlarged lymph nodes. There is diffuse bladder wall thickening. IMPRESSION: 1. Mild to moderate sigmoid diverticulitis. No drainable collection. 2. Small hiatal hernia. 3. Bronchial wall thickening in the lung bases is nonspecific but may reflect acute or chronic bronchitis. 4. Diffuse bladder wall thickening indicates chronic outlet obstruction or inflammation. Correlate with urinalysis. *One or more of the following individualized dose reduction techniques were utilized for this examination: 1. Automated exposure control. 2. Adjustment of the mA and/or kV according to patient size. 3. Use of iterative reconstruction technique. Electronically signed by: Gisselle Carbajal MD (05/11/2018 11:23 PM) [facility]
--- NOTE | 2018-05-11 23:36 | RAD ---
EXAM: CHEST 1 VIEW. HISTORY: Shortness of breath, weakness. COMPARISON: 09/24/2016. FINDINGS: A frontal view of the chest is obtained. There are mildly increased interstitial opacities in both bases. The lungs are expanded to the 10th posterior ribs. There is no pneumothorax or clear pleural effusion. The heart is not enlarged. The central pulmonary arteries are prominent. IMPRESSION: 1. Mild interstitial opacities in the bases. Correlate for interstitial lung disease or atypical pneumonia. 2. Prominence of the central pulmonary artery suggests pulmonary arterial hypertension. 3. Hyperinflation. Correlate for chronic obstructive pulmonary disease. Electronically signed by: Gisselle Carbajal MD (05/11/2018 11:33 PM) [facility]
[2018-05-12] MEDS ORDERED: diphenhydrAMINE 50 MG/ML VIAL IVP PRN (01:45)
[2018-05-12] MEDS ORDERED: ONDANSETRON PF 4 MG/2 ML VIAL. IV PRN (01:45)
[2018-05-12 02:30] VITALS: BP 152/69
[2018-05-12] MEDS ORDERED: CRESTOR10 MG PO (02:45)
[2018-05-12] MEDS ORDERED: ASPI-630 PO (02:45)
[2018-05-12] MEDS: IV NORMAL SALINE 1000ML BAG 1,000 ML IV SCH ×2 (02:52→14:44)
[2018-05-12] MEDS ORDERED: cefTRIAXone IV Push 1 GM VIAL. IVP ONE (03:15)
[2018-05-12] MEDS ORDERED: C.DIFF MED SCREEN BY RX. MC ONE (04:00)
[2018-05-12 07:00] VITALS: BP 128/56
[2018-05-12 11:39] VITALS: BP 121/62
[2018-05-12] MEDS: LACTOBACILLUS RHAMNOSUS GG 1 CAPSULE. PO SCH ×2 (13:08→21:48)
[2018-05-12 15:38] VITALS: BP 122/53
[2018-05-12 19:25] VITALS: BP 120/57
[2018-05-12] MEDS: cefTRIAXone IV Push 1 GM VIAL. IVP SCH (21:51)
[2018-05-12 23:25] VITALS: BP 125/52
[2018-05-13 03:10] VITALS: BP 143/58
[2018-05-13 07:00] VITALS: BP 139/57
[2018-05-13] MEDS: LACTOBACILLUS RHAMNOSUS GG 1 CAPSULE. PO SCH ×2 (08:00→20:51)
--- NOTE | 2018-05-13 09:45 | PDOC ---
Provider Note Provider Note [id number] LILIA AVELAR MD May 13, 2018 09:45
--- NOTE | 2018-05-13 10:52 | HP ---
ADMIT DATE: 05/12/2018 CHIEF COMPLAINT: Left lower quadrant abdominal pain. HISTORY OF PRESENT ILLNESS: An 88-year-old white female, patient of Dr. Rincon's, had been seen in his office about 3 days prior to admission with some lower abdominal pain and diarrhea. A stool sample was to be collected for possible C. diff, although she has not taken antibiotics recently and was not having an aggressive or bloody diarrhea. Pain increased and she came to the ER on Monday night and was found to have some sigmoid diverticulitis and UTI and admitted with Flagyl and Rocephin. She was admitted to the hospitalist, but on 05/12, they declined to see the patient and transferred to Dr. Rincon, but I was not notified until 9:00 a.m. on 05/13, and I came and saw the patient at that time. The patient understands the delay and why she was not seen by a physician for over 36 hours since her admission as Dr. Rincon was out of town. She states her pain is improving now. PAST MEDICAL HISTORY: She had a drug resistant UTI 2 years ago. She is on Crestor and aspirin for previous stroke. ALLERGIES: CIPRO. Has not had any known UTI lately. SOCIAL HISTORY: , nonsmoker, nondrinker, lives with her son. Not physically active. FAMILY HISTORY: Unremarkable. REVIEW OF SYSTEMS:. Denies any urinary tract symptoms such as dysuria, hematuria, urgency, or other complaints. OBJECTIVE: ENT: All within normal limits. NECK: No masses, nodes or bruits. LUNGS: Clear. CARDIOVASCULAR: Regular rate. No irregular beat, murmur or tachycardia. BREASTS: Not examined. ABDOMEN: Soft, benign, very mildly tender in left lower quadrant. No guarding or masses or rebound was felt. The right side is benign. EXTREMITIES: Good pedal and radial pulses. No joint or skin lesions or edema. NEUROLOGIC: Physiologic, nonfocal. LABORATORY STUDY: Showed evidence of urinary tract infection. CBC and chemistry profile were unremarkable. CT scan was reviewed. ASSESSMENT: 1. Sigmoid diverticulitis, improving with Flagyl and Rocephin clinically. 2. Urinary tract infection. Culture is pending. She is not symptomatic from this. 3. Recent diarrhea. Doubt C. diff infection. 4. History of stroke last year, on aspirin and Crestor. PLAN: Continue Flagyl and Rocephin pending urine culture and outpatient C. diff result. Treatment for the urinary tract infection will depend on the culture, but she is clinically better at this time. Dr. Rincon will likely resume care on 05/14. LILIA AVELAR MD DR: FÉLIX/hernan JOB#: [id number] / [id number]
[2018-05-13 11:00] VITALS: BP 128/45
--- NOTE | 2018-05-13 13:46 | PDOC ---
Infectious Disease Note Vital Sign Vital Signs Vital Signs Date Time Temp Pulse Resp B/P (MAP) Pulse Ox O2 Delivery O2 Flow Rate FiO2 05/13/18 11:00 97.7 67 16 128/45 (72) 95 Room Air 97.7 05/13/18 08:00 2.0 Objective Assessment Acute sigmoid diverticulitis Cystitis -h/o Enterobacter cloacae S amikacin, gent, tobra and imipenem -h/o Multiple UTIs in the past Allergies PCN - hives; Cipro -can't remember but has tolerated Levaquin w/o problem; NFT "didn't work" Diarrhea h/o C. diff 2014 COPD, O2 dependent -recent bronchitics treated abx Plan Plan of Care For now continue the Rocephin and Flagyl Ideally, would like to switch to meropenem. However, the patient she says the Rocephin has worked well in the past and is not in favor of making any antibiotic changes at this time. add urine culture Check stood for c. diff Labs in am Supportive care Thank you [id number] Attending Co-Sign The patient was seen and interviewed as well as examined at the bedside. The chart was reviewed. The case was discussed. Agree with the plan of care. ELI LANDIS APRN May 13, 2018 13:46 JONATHAN VELARDE MD May 13, 2018 13:56
[2018-05-13 15:00] VITALS: BP 126/49
[2018-05-13] MEDS: ASPIRIN CHEWABLE 81 MG TABLET. PO SCH (18:44)
[2018-05-13 19:00] VITALS: BP 150/63
[2018-05-13] MEDS: cefTRIAXone IV Push 1 GM VIAL. IVP SCH (20:56)
[2018-05-13 22:45] VITALS: BP 162/66
--- NOTE | 2018-05-13 23:06 | CONS ---
DATE OF CONSULTATION: 05/13/2018 DICTATED BY: This is Enrique Hunter, nurse practitioner, dictated for Dr. Art Velarde, Infectious Disease. REFERRING PHYSICIAN: Dr. Rincon. REASON FOR CONSULTATION: Multidrug-resistant UTI. HISTORY OF PRESENT ILLNESS: This patient is an 88-year-old female who presented with 5-day history of lower abdominal pain and diarrhea, associated with fevers, chills and body aches. A CT abdomen/pelvis scan revealed [id number] sigmoid diverticulitis, without a drainable collection or obstruction as well as diffuse bladder wall thickening. Urinalysis showed wbc's greater than 40, large leukocyte esterase, positive nitrite with many bacteria and few squamous epithelial cells. Given multiple antibiotic allergies, she was started on Rocephin and metronidazole. The patient has had a history of frequent urinary tract infections. So far this year, this is her second. In the past, she has grown out Enterobacter cloacae sensitive to amikacin, gentamicin, tobramycin and imipenem. She reports an increase of urinary frequency and an episode of incontinence. Denies dysuria or odor. She describes her stools as small, loose and mucousy. Denies nausea or vomiting. Her appetite is diminished. She was treated for bronchitis last month and finished a course of antibiotics. She has a history of COPD and is oxygen dependent. Denies shortness of air, cough or chest discomfort. PAST MEDICAL HISTORY: Multiple urinary tract infections, with history of Enterobacter cloacae sensitive to amikacin, gentamicin, tobramycin and imipenem. Chronic obstructive pulmonary disease, oxygen dependent. History of deep venous thrombosis. Stress incontinence. Cerebrovascular accident. History of Clostridium difficile in 2014. Arthritis. PAST SURGICAL HISTORY: Cholecystectomy, tubal ligation, hysterectomy and cataract extraction. FAMILY HISTORY: Positive for cancer, diabetes, cardiovascular disease and dementia. SOCIAL HISTORY: The patient is a . She is a former smoker. ALLERGIES: PENICILLIN, CAUSING HIVES. CIPROFLOXACIN, SHE CANNOT REMEMBER THE TYPE OF REACTION, but has tolerated levofloxacin without problem. NITROFURANTOIN "DIDN'T WORK". MEDICATIONS: Metronidazole, ceftriaxone, aspirin, probiotics, Zofran and Benadryl. REVIEW OF SYSTEMS: Per HPI; otherwise, all other review of systems are negative. PHYSICAL EXAMINATION: GENERAL: The patient is lying down, appears comfortable, in no apparent distress. VITAL SIGNS: Temperature is 97.7, blood pressure 128/45, heart rate 67, respiratory rate 16 and pulse oximetry is 95% on 2 liters O2. BMI 28. HEENT: Normal conjunctivae. Oral cavity, pharynx pink and moist. NECK: Supple. LUNGS: Clear to auscultation. HEART: S1, S2. ABDOMEN: Obese. Bowel sounds active. Soft and nontender. EXTREMITIES: No gross edema or cyanosis. SKIN: Warm, without rash. NEUROLOGIC: Alert and oriented x 3. LABORATORY DATA: Recent from admission, WBC 5.7, hemoglobin 10.4 and platelets 276,000. Sodium 144, potassium 3.4, creatinine 0.9, BUN 13 and glucose 138. Total bilirubin 0.5, AST 17, ALT 14. Albumin 2.6. Urinalysis per HPI. Abdominal/pelvis CT per HPI. In addition, bronchial wall thickening in the lung bases also noted, with a small hiatal hernia. IMPRESSION: 1. Acute sigmoid diverticulitis. 2. Cystitis. 3. MULTIPLE ANTIBIOTIC ALLERGIES TO PENICILLIN, CIPROFLOXACIN AND NITROFURANTOIN. 4. Diarrhea. 5. History of Clostridium difficile. 6. Chronic obstructive pulmonary disease, oxygen dependent. PLAN: For now, continue the ceftriaxone and metronidazole. Ideally, we would like to switch to meropenem. However, the patient says the ceftriaxone has worked well in the past and is not in favor of making any antibiotic changes at this time. We will add a urine culture and check stool for Clostridium difficile. Repeat labs in the morning. Supportive care. Thank you, Dr. Rincon, for asking us to participate in this patient's care. Should you have further questions or concerns, please call. ART VELARDE MD DR: GLORY/hernan JOB#: [id number] / [id number]
[2018-05-14 03:00] VITALS: BP 154/66
[2018-05-14 07:00] VITALS: BP 156/51
[2018-05-14 07:05] LABS: BASO % 0 % (0-3); EOS # 0.2 x10^3/uL (0.0-0.7); EOS % 5 % (0-3); HEMATOCRIT 30.2 % (36.0-47.0); LYMPH # 0.5 x10^3/uL (1.0-4.8); LYMPH % 12 % (24-48); MEAN CORPUSCULAR HEMOGLOBIN 27 pg (25-35); MEAN CORPUSCULAR HGB CONC 33 g/dL (31-37); MEAN CORPUSCULAR VOLUME 81 fL (79-100); MONO # 0.5 x10^3/uL (0.0-1.1); MONO % 12 % (0-9); NEUT # 3.1 x10^3uL (1.8-7.7); NEUT % 70 % (31-73); PLATELET COUNT 274 x10^3/uL (140-400); RED BLOOD COUNT 3.71 x10^6/uL (3.50-5.40); RED CELL DISTRIBUTION WIDTH 15.6 % (11.5-14.5); WHITE BLOOD COUNT 4.4 x10^3/uL (4.0-11.0)
[2018-05-14 07:12] LABS: CREATININE 0.8 mg/dL (0.6-1.0); GFR 67.7
--- NOTE | 2018-05-14 10:11 | PDOC ---
Infectious Disease Note Subjective Subjective Feels better. Less discomfort in LLQ No gross diarrhea or blood in her stool. No F/C/S/N/V/SOA or rash ROS ROS o/w neg Vital Sign Vital Signs Vital Signs Date Time Temp Pulse Resp B/P (MAP) Pulse Ox O2 Delivery O2 Flow Rate FiO2 05/14/18 07:00 97.8 66 16 156/51 (86) 91 Nasal Cannula 2.0 97.8 Physical Exam PHYSICAL EXAM GENERAL: The patient is lying down, appears comfortable, in no apparent distress. HEENT: Normal conjunctivae. Oral cavity, pharynx pink and moist. NECK: Supple. LUNGS: Clear to auscultation. HEART: S1, S2. ABDOMEN: Obese. Bowel sounds active. Soft and nontender. No guard or rebound EXTREMITIES: No gross edema or cyanosis. SKIN: Warm, without rash. NEUROLOGIC: Alert and oriented x 3. Labs Lab Laboratory Tests Test 05/14/18 05:29 White Blood Count 4.4 x10^3/uL (4.0-11.0) Red Blood Count 3.71 x10^6/uL (3.50-5.40) Hemoglobin 10.0 g/dL (12.0-15.5) Hematocrit 30.2 % (36.0-47.0) Mean Corpuscular Volume 81 fL (79-100) Mean Corpuscular Hemoglobin 27 pg (25-35) Mean Corpuscular Hemoglobin Concent 33 g/dL (31-37) Red Cell Distribution Width 15.6 % (11.5-14.5) Platelet Count 274 x10^3/uL (140-400) Neutrophils (%) (Auto) 70 % (31-73) Lymphocytes (%) (Auto) 12 % (24-48) Monocytes (%) (Auto) 12 % (0-9) Eosinophils (%) (Auto) 5 % (0-3) Basophils (%) (Auto) 0 % (0-3) Neutrophils # (Auto) 3.1 x10^3uL (1.8-7.7) Lymphocytes # (Auto) 0.5 x10^3/uL (1.0-4.8) Monocytes # (Auto) 0.5 x10^3/uL (0.0-1.1) Eosinophils # (Auto) 0.2 x10^3/uL (0.0-0.7) Basophils # (Auto) 0.0 x10^3/uL (0.0-0.2) Sodium Level 147 mmol/L (136-145) Potassium Level 3.0 mmol/L (3.5-5.1) Chloride Level 110 mmol/L (98-107) Carbon Dioxide Level 30 mmol/L (21-32) Anion Gap 7 (6-14) Blood Urea Nitrogen 4 mg/dL (7-20) Creatinine 0.8 mg/dL (0.6-1.0) Estimated GFR (Cockcroft-Gault) 67.7 Glucose Level 118 mg/dL (70-99) Calcium Level 8.0 mg/dL (8.5-10.1) Objective Assessment 1. Acute sigmoid diverticulitis - better. 2. Cystitis - denies symptoms. 3. MULTIPLE ANTIBIOTIC ALLERGIES TO PENICILLIN, CIPROFLOXACIN AND NITROFURANTOIN. 4. Diarrhea had semi formed at 3 this am. 5. History of Clostridium difficile. 6. Chronic obstructive pulmonary disease, oxygen dependent. Plan Plan of Care For now continue the Brandon feels it is working well and is not in favor of making any antibiotic changes at this time. F/u urine culture Check stood for c. diff Supportive care TASHI JIN MD May 14, 2018 10:11
[2018-05-14 11:00] VITALS: BP 160/65
[2018-05-14] MEDS: LACTOBACILLUS RHAMNOSUS GG 1 CAPSULE. PO SCH ×2 (13:02→21:17)
[2018-05-14 15:30] VITALS: BP 140/69
[2018-05-14] MEDS ORDERED: POTASSIUM CHLORIDE 20 MEQ TABLET.ER. PO ONE (17:00)
[2018-05-14] MEDS: ASPIRIN CHEWABLE 81 MG TABLET. PO SCH (17:42)
[2018-05-14 19:00] VITALS: BP 156/58
[2018-05-14 23:00] VITALS: BP 131/48
[2018-05-14] MEDS: cefTRIAXone IV Push 1 GM VIAL. IVP SCH (23:21)
--- NOTE | 2018-05-15 02:46 | PN ---
DATE: LOCATION: She is on room 412. SUBJECTIVE: The patient is awake, alert, taking a nap, but easily awakened, claims to be feeling better on a daily basis. Her abdominal pain is definitely improved. OBJECTIVE: VITAL SIGNS: Stable. She is afebrile. LABORATORY DATA: White count is 4400. Potassium is 3 and we will replace the same. UA shows large leukocyte esterase and greater than 40 white blood cells with no culture available, but she is on Rocephin, which I would guess, would cover the same. Abdomen and pelvis CT showed diverticulitis on admission. LUNGS: Diminished breath sounds, but clear. HEART: Regular. ABDOMEN: There is mild left lower quadrant tenderness without any rebound or guarding. ASSESSMENT: 1. Diverticulitis, improving. 2. Urinary tract infection. 3. Chronic obstructive pulmonary disease. 4. Hypokalemia. PLAN: Continue present antibiotics per ID with transition to oral when they feel possible and again we will replace potassium. OSMAR JULIAN MD DR: JALEN/hernan JOB#: [id number] / [id number]
[2018-05-15 03:00] VITALS: BP 161/76
[2018-05-15 05:03] LABS: CALCIUM 8.2 mg/dL (8.5-10.1); CREATININE 0.7 mg/dL (0.6-1.0); POTASSIUM 3.3 mmol/L (3.5-5.1)
[2018-05-15 07:00] VITALS: BP 141/73
--- NOTE | 2018-05-15 08:34 | PDOC ---
Infectious Disease Note Subjective Subjective Continues to feels better. Less discomfort in LLQ Eating States her urine is a little dark No gross diarrhea or blood in her stool. No F/C/S/N/V/SOA or rash ROS ROS o/w neg Vital Sign Vital Signs Vital Signs Date Time Temp Pulse Resp B/P (MAP) Pulse Ox O2 Delivery O2 Flow Rate FiO2 05/15/18 03:00 98.2 78 18 161/76 (104) 97 Nasal Cannula 2.0 98.2 Physical Exam PHYSICAL EXAM GENERAL: In bed appears comfortable, in no apparent distress. Looks better HEENT: Normal conjunctivae. Oral cavity, pharynx pink and moist. NECK: Supple. LUNGS: Clear to auscultation. HEART: S1, S2. ABDOMEN: Obese. Bowel sounds active. Soft and nontender. No guard or rebound EXTREMITIES: No gross edema or cyanosis. SKIN: Warm, without rash. NEUROLOGIC: Alert and oriented x 3. Labs Lab Laboratory Tests Test 05/15/18 04:10 Sodium Level 147 mmol/L (136-145) Potassium Level 3.3 mmol/L (3.5-5.1) Chloride Level 109 mmol/L (98-107) Carbon Dioxide Level 30 mmol/L (21-32) Anion Gap 8 (6-14) Blood Urea Nitrogen 4 mg/dL (7-20) Creatinine 0.7 mg/dL (0.6-1.0) Estimated GFR (Cockcroft-Gault) 79.0 Glucose Level 118 mg/dL (70-99) Calcium Level 8.2 mg/dL (8.5-10.1) Objective Assessment 1. Acute sigmoid diverticulitis - better. 2. Cystitis - denies symptoms. 3. MULTIPLE ANTIBIOTIC ALLERGIES TO PENICILLIN, CIPROFLOXACIN AND NITROFURANTOIN. 4. Diarrhea had semi formed at 3 this am. 5. History of Clostridium difficile. 6. Chronic obstructive pulmonary disease, oxygen dependent. Plan Plan of Care For now continue the Rocephin and Flagyl (change to po) she feels it is working well and is still not in favor of making any antibiotic changes at this time. CBc in am IVF today per primary F/u urine culture Check stood for c. diff Supportive care TASHI JIN MD May 15, 2018 08:34
[2018-05-15] MEDS: LACTOBACILLUS RHAMNOSUS GG 1 CAPSULE. PO SCH ×2 (09:54→20:53)
[2018-05-15] MEDS: POTASSIUM CHLORIDE 40 MEQ in IV 1/2 NORMAL SALINE 1,000 ML IV SCH (11:10)
[2018-05-15 11:23] VITALS: BP 155/91
--- NOTE | 2018-05-15 12:10 | PN ---
DATE: 05/15/2018 LOCATION: She is in room 412. SUBJECTIVE: The patient is awake and alert, getting ready to eat breakfast, abdominal pain is decreasing on a daily basis. OBJECTIVE: VITAL SIGNS: Stable. She is afebrile. CHEST: Reveals diminished breath sounds, but clear. HEART: Regular. ABDOMEN: Down to minimal left lower quadrant tenderness. LABORATORY DATA: Potassium was up to 3.3 this morning, but sodium was also elevated at 147. She does admit not drinking much. Some IV replacement fluids will be given today along with potassium in them. There is no urine culture available at this point yet showing up on the computer. IMPRESSION: 1. Diverticulitis, clinically improving. 2. Hypokalemia, improved, but still low. 3. Chronic obstructive pulmonary disease. 4. Urinary tract infection with no organisms to date. PLAN: Continue present antibiotics. ID to continue to follow along. IV fluids will be given for the hypernatremia as well as potassium replacement for the hypokalemia. We will follow these in the morning. OSMAR JULIAN MD DR: JALEN/hernan JOB#: [id number] / [id number]
[2018-05-15] MEDS: metroNIDAZOLE 500 MG TABLET PO SCH ×2 (14:43→20:53)
[2018-05-15 15:00] VITALS: BP 138/81
[2018-05-15] MEDS: ASPIRIN CHEWABLE 81 MG TABLET. PO SCH (17:27)
[2018-05-15 19:20] VITALS: BP 156/75
[2018-05-15 23:20] VITALS: BP 150/81
[2018-05-15] MEDS: cefTRIAXone IV Push 1 GM VIAL. IVP SCH (23:26)
[2018-05-16 03:00] VITALS: BP 145/72
[2018-05-16] MEDS: metroNIDAZOLE 500 MG TABLET PO SCH (06:10)
[2018-05-16] MEDS: POTASSIUM CHLORIDE 40 MEQ in IV 1/2 NORMAL SALINE 1,000 ML IV SCH (06:10)
[2018-05-16 07:00] VITALS: BP 132/64
[2018-05-16 07:19] LABS: BASO % 1 % (0-3); EOS # 0.4 x10^3/uL (0.0-0.7); EOS % 6 % (0-3); HEMATOCRIT 30.6 % (36.0-47.0); HEMOGLOBIN 10.2 g/dL (12.0-15.5); LYMPH # 0.8 x10^3/uL (1.0-4.8); LYMPH % 14 % (24-48); MEAN CORPUSCULAR HEMOGLOBIN 27 pg (25-35); MEAN CORPUSCULAR HGB CONC 33 g/dL (31-37); MEAN CORPUSCULAR VOLUME 81 fL (79-100); MONO # 0.6 x10^3/uL (0.0-1.1); MONO % 10 % (0-9); NEUT # 3.8 x10^3uL (1.8-7.7); NEUT % 69 % (31-73); PLATELET COUNT 317 x10^3/uL (140-400); RED BLOOD COUNT 3.76 x10^6/uL (3.50-5.40); RED CELL DISTRIBUTION WIDTH 15.8 % (11.5-14.5); WHITE BLOOD COUNT 5.5 x10^3/uL (4.0-11.0)
[2018-05-16 07:44] LABS: CALCIUM 8.6 mg/dL (8.5-10.1); CREATININE 0.7 mg/dL (0.6-1.0); POTASSIUM 3.7 mmol/L (3.5-5.1)
[2018-05-16] MEDS: LACTOBACILLUS RHAMNOSUS GG 1 CAPSULE. PO SCH (08:56)
--- NOTE | 2018-05-16 09:43 | PDOC ---
Infectious Disease Note Subjective Subjective Much better and wanting to go home Less discomfort in LLQ Eating States her urine is a little dark No gross diarrhea or blood in her stool. No F/C/S/N/V/SOA or rash Vital Sign Vital Signs Vital Signs Date Time Temp Pulse Resp B/P (MAP) Pulse Ox O2 Delivery O2 Flow Rate FiO2 05/16/18 07:00 98.2 80 28 132/64 (86) 94 Nasal Cannula 2.0 98.2 Physical Exam PHYSICAL EXAM GENERAL: In bed appears comfortable, in no apparent distress. Looks better HEENT: Normal conjunctivae. Oral cavity, pharynx pink and moist. NECK: Supple. LUNGS: Clear to auscultation. HEART: S1, S2. ABDOMEN: Obese. Bowel sounds active. Soft and nontender. No guard or rebound EXTREMITIES: No gross edema or cyanosis. SKIN: Warm, without rash. NEUROLOGIC: Alert and oriented x 3. Labs Lab Laboratory Tests Test 05/16/18 06:15 White Blood Count 5.5 x10^3/uL (4.0-11.0) Red Blood Count 3.76 x10^6/uL (3.50-5.40) Hemoglobin 10.2 g/dL (12.0-15.5) Hematocrit 30.6 % (36.0-47.0) Mean Corpuscular Volume 81 fL (79-100) Mean Corpuscular Hemoglobin 27 pg (25-35) Mean Corpuscular Hemoglobin Concent 33 g/dL (31-37) Red Cell Distribution Width 15.8 % (11.5-14.5) Platelet Count 317 x10^3/uL (140-400) Neutrophils (%) (Auto) 69 % (31-73) Lymphocytes (%) (Auto) 14 % (24-48) Monocytes (%) (Auto) 10 % (0-9) Eosinophils (%) (Auto) 6 % (0-3) Basophils (%) (Auto) 1 % (0-3) Neutrophils # (Auto) 3.8 x10^3uL (1.8-7.7) Lymphocytes # (Auto) 0.8 x10^3/uL (1.0-4.8) Monocytes # (Auto) 0.6 x10^3/uL (0.0-1.1) Eosinophils # (Auto) 0.4 x10^3/uL (0.0-0.7) Basophils # (Auto) 0.0 x10^3/uL (0.0-0.2) Sodium Level 144 mmol/L (136-145) Potassium Level 3.7 mmol/L (3.5-5.1) Chloride Level 107 mmol/L (98-107) Carbon Dioxide Level 30 mmol/L (21-32) Anion Gap 7 (6-14) Blood Urea Nitrogen 4 mg/dL (7-20) Creatinine 0.7 mg/dL (0.6-1.0) Estimated GFR (Cockcroft-Gault) 79.0 Glucose Level 109 mg/dL (70-99) Calcium Level 8.6 mg/dL (8.5-10.1) Micro Microbiology 05/11/18 Urine Culture - Preliminary, Resulted 05/11/18 Urine Culture Result 1 (BELA) - Preliminary, Ecoli Objective Assessment 1. Acute sigmoid diverticulitis - better. 2. Cystitis - denies symptoms.- Ecoli in urine 3. MULTIPLE ANTIBIOTIC ALLERGIES TO PENICILLIN, CIPROFLOXACIN AND NITROFURANTOIN. 4. Diarrhea had semi formed at 3 this am. 5. History of Clostridium difficile. 6. Chronic obstructive pulmonary disease, oxygen dependent. Plan Plan of Care I explained that Ecoli sens are not back but she is significantly improved so will dose Rocephin times one now which could treat UTI and then d/c on po to finish diverticulitis treatment Dose Rocephin now and Flagyl (change to po) she feels it is working well Clinically much improved D/c home on Cefpodoxime to start 05/17 and cont Flagyl for 7 days - RX written TASHI JIN MD May 16, 2018 09:43
[2018-05-16 11:00] VITALS: BP 116/60
[2018-05-16] MEDS ORDERED: cefTRIAXone IV Push 1 GM VIAL. IVP SCH (11:00)
--- NOTE | 2018-05-16 19:18 | PN ---
DATE: 05/16/2018 LOCATION: She is in room 412. SUBJECTIVE: The patient is awake, alert, getting the breakfast. States she feels her abdominal pain is almost completely resolved at this point and is anxious to get home. OBJECTIVE: VITAL SIGNS: Stable. She is afebrile. CHEST: Reveals diminished breath sounds bilaterally, but clear. HEART: Regular. ABDOMEN: Essentially nontender this morning. LABORATORY DATA: Her potassium is up to 3.7 with replacement and sodium down to 144 with IV fluids. She does state that her urine has cleared up. White count remains normal, hemoglobin stable at 10.2. Her left shift is resolved on her CBC. Urine culture this morning is showing greater than 100,000 Gram-negative rods without any ID today. IMPRESSION: 1. Diverticulitis, improving. 2. Hypokalemia, resolved. 3. Hypernatremia, resolved. 4. Chronic obstructive pulmonary disease, stable. 5. Urinary tract infection with Escherichia coli. PLAN: I have written a prescription this morning for Levaquin 500 mg 1 daily for 5 days to go with Flagyl, which she already has at home if ID is agreeable to discharge when they see her. If so, we will follow up in the office in 1 week. OSMAR JULIAN MD DR: JALEN/hernan JOB#: [id number] / [id number]
--- NOTE | 2018-05-18 17:31 | DS ---
DATE OF DISCHARGE: 05/16/2018 PRIMARY DIAGNOSIS: Diverticulitis. ADDITIONAL DIAGNOSES: 1. Escherichia coli urinary tract infection. 2. Chronic obstructive pulmonary disease. CHIEF COMPLAINT AND HISTORY OF PRESENT ILLNESS: This 88-year-old white female admitted through the Emergency Room with abdominal pain and diarrhea for 5 days. She admits to mucousy type stools at time of admission. CT scanning showing acute diverticulitis. Urine on admission was suggestive of a urinary tract infection. SUMMARY OF STAY: The patient was admitted, treated with Rocephin and Flagyl throughout the stay with daily improvement. Urine culture eventually grew out E. coli sensitive to the Rocephin in addition, her diarrhea ceased, her bowels were moving by the time of discharge. Her pain is almost resolved. She constitutionally felt much better and was felt ready for discharge on the day of discharge and this was accomplished. DISPOSITION: The patient is discharged to home, regular diet, activity as tolerated, office in 1 week. DISCHARGE MEDICATIONS: Listed on the med rec and have been addressed. OSMAR JULIAN MD DR: JALEN/hernan JOB#: [id number] / [id number]
== END 2018-05-16 13:15 | disposition home or self-care (01) | DRG 871 ==
LOC: ER 19:50 → 4 NORTH 05-12 01:44
PROVIDERS: ADMIT Family Medicine; ATTEND Family Medicine
DX: A41.9 Sepsis, unspecified organism (principal); E43 Unspecified severe protein-calorie malnutrition; K57.32 Diverticulitis of large intestine without perforation or abscess without bleeding; E87.0 Hyperosmolality and hypernatremia; N30.90 Cystitis, unspecified without hematuria; M19.90 Unspecified osteoarthritis, unspecified site; B96.20 Unspecified Escherichia coli [E. coli] as the cause of diseases classified elsewhere; E87.6 Hypokalemia; J44.9 Chronic obstructive pulmonary disease, unspecified; Z16.24 Resistance to multiple antibiotics; Z79.01 Long term (current) use of anticoagulants; Z99.81 Dependence on supplemental oxygen; Z90.49 Acquired absence of other specified parts of digestive tract; Z90.710 Acquired absence of both cervix and uterus; Z79.899 Other long term (current) drug therapy; Z98.49 Cataract extraction status, unspecified eye; Z98.51 Tubal ligation status; Z88.1 Allergy status to other antibiotic agents; Z88.0 Allergy status to penicillin; Z91.018 Allergy to other foods; Z91.012 Allergy to eggs; Z88.5 Allergy status to narcotic agent; Z86.718 Personal history of other venous thrombosis and embolism; Z86.73 Personal history of transient ischemic attack (TIA), and cerebral infarction without residual deficits; Z87.440 Personal history of urinary (tract) infections; Z87.891 Personal history of nicotine dependence; Z82.49 Family history of ischemic heart disease and other diseases of the circulatory system; Z83.3 Family history of diabetes mellitus
CPT/HCPCS: 36415; 71045; 74177; 80048; 80053; 81001; 83735; 85025; 87086; 87186; 96360; 96361; J0696; J3490; J7030; Q9967; 99285-25

== ENCOUNTER 2018-12-18 12:13 | Inpatient (IN) | payer MEDICARE ==
[~2018-12-18] VITALS: Ht 160 cm; Wt 71.8 kg
[~2018-12-18 12:13] MED LIST changes: +ASPI-630 PO; +CRESTOR10 MG PO
[2018-12-18] MEDS ORDERED: IPRATRPIUM/ALBUTEROL 0.5/2.5MG 3 ML NEBU. NEB ONE ×2 (12:45)
--- NOTE | 2018-12-18 13:01 | RAD ---
EXAM: CHEST 1 VIEW History: Shortness of breath COMPARISON: 05/11/2018 TECHNIQUE: Single portable radiograph of the chest FINDINGS: The cardiac silhouette is unremarkable. The lungs are clear bilaterally. The costophrenic sulci are clear and well demarcated. IMPRESSION: No radiographic evidence of an acute cardiopulmonary process. Electronically signed by: Lance Galan MD (12/18/2018 12:58 PM) [id number]
--- NOTE | 2018-12-18 13:10 | EKG ---
[facility] [address] [place] [address] Test Date: 2018-12-18 Test Time: 12:29:06 Pat Name: LEXX MAGANA Department: Room: Gender: F English Teacher: : 1930 Requested By: KAREN LOPEZ Order Number: [id number] Reading MD: Measurements Intervals [place] Rate: 81 P: 42 MT: 218 QRS: 20 QRSD: 82 T: 42 QT: 370 QTc: 430 Interpretive Statements SINUS RHYTHM VENTRICULAR PREMATURE COMPLEX(ES) PROLONGED MT INTERVAL ABNORMAL ECG RI6.01 Unconfirmed report No previous ECG available for comparison
[2018-12-18 13:16] LABS: BASO % 0 % (0-3); EOS % 0 % (0-3); HEMATOCRIT 37.7 % (36.0-47.0); HEMOGLOBIN 12.1 g/dL (12.0-15.5); LYMPH # 0.7 x10^3/uL (1.0-4.8); LYMPH % 7 % (24-48); MEAN CORPUSCULAR HEMOGLOBIN 26 pg (25-35); MEAN CORPUSCULAR HGB CONC 32 g/dL (31-37); MEAN CORPUSCULAR VOLUME 80 fL (79-100); MONO # 0.8 x10^3/uL (0.0-1.1); MONO % 8 % (0-9); NEUT # 8.4 x10^3uL (1.8-7.7); NEUT % 85 % (31-73); PLATELET COUNT 383 x10^3/uL (140-400); RED BLOOD COUNT 4.71 x10^6/uL (3.50-5.40); RED CELL DISTRIBUTION WIDTH 15.5 % (11.5-14.5); WHITE BLOOD COUNT 9.9 x10^3/uL (4.0-11.0)
[2018-12-18 13:25] LABS: CALCIUM 9.1 mg/dL (8.5-10.1); GFR 52.3; POTASSIUM 3.7 mmol/L (3.5-5.1)
[2018-12-18 13:31] LABS: ALBUMIN 3.3 g/dL (3.4-5.0); ALBUMIN/GLOBULIN RATIO 0.9 (1.0-1.7); TOTAL BILIRUBIN 0.5 mg/dL (0.2-1.0); TOTAL PROTEIN 7.1 g/dL (6.4-8.2)
--- NOTE | 2018-12-18 13:35 | PHYS DOC ---
Past Medical History Past Medical History: COPD Additional Past Medical Histor: WEARS O2 AT HOME Past Surgical History: Appendectomy, Cholecystectomy, Tubal ligation Additional Information: quit smoking 40 years ago Alcohol Use: None Drug Use: None Adult General Chief Complaint Chief Complaint: COUGH HPI HPI Patient is a 88 year old female who presented to ER today for evaluation of cough, trouble breathing for about a days. Patient went to see her doctor 1 week ago, diagnosed with bronchitis, put on steroid and antibiotic but did not get any better. Patient has history of COPD, on oxygen at home. Patient is a former smoker. She denies any history of hypertension, no history diabetic, no history of coronary artery disease. Review of Systems Review of Systems Constitutional: Denies fever or chills [] Eyes: Denies change in visual acuity, redness, or eye pain [] HENT: Denies nasal congestion or sore throat [] Respiratory: Positive for cough and shortness of breath [] Cardiovascular: No additional information not addressed in HPI [] GI: Denies abdominal pain, nausea, vomiting, bloody stools or diarrhea [] : Denies dysuria or hematuria [] Musculoskeletal: Denies back pain or joint pain [] Integument: Denies rash or skin lesions [] Neurologic: Denies headache, focal weakness or sensory changes [] Endocrine: Denies polyuria or polydipsia [] All other systems were reviewed and found to be within normal limits, except as documented in this note. Current Medications Current Medications Current Medications Medications (Trade) Dose Ordered Sig/Teodoro Start Time Stop Time Status Last Admin Dose Admin Albuterol/ Ipratropium (Duoneb) 3 ml 1X ONCE 12/18/18 12:45 12/18/18 12:46 DC Allergies Allergies Allergies Coded Allergies Type Severity Reaction Last Updated Verified codeine Allergy Severe Anaphylaxis 04/08/15 Yes nitrofurantoin Allergy Severe Shortness of Air 04/09/15 Yes Penicillins Allergy Intermediate Rash 04/08/15 Yes ciprofloxacin Adverse Reaction Intermediate DOES NOT WORK 04/09/15 Yes egg Adverse Reaction Intermediate heartburn, indigestion 05/12/18 Yes nut - unspecified Adverse Reaction Intermediate DIVERTICULITIS 09/25/16 Yes onion Adverse Reaction Intermediate STOMACH ACHE 05/12/18 No Physical Exam Physical Exam Constitutional: Well developed, well nourished, no acute distress, non-toxic appearance. [] HENT: Normocephalic, atraumatic, bilateral external ears normal, oropharynx moist, no oral exudates, nose normal. [] Eyes: PERRLA, EOMI, conjunctiva normal, no discharge. [] Neck: Normal range of motion, no tenderness, supple, no stridor. [] Cardiovascular:Heart rate regular rhythm, no murmur [] Lungs & Thorax: Bilateral breath sounds with expiratory wheezing. Abdomen: Bowel sounds normal, soft, no tenderness, no masses, no pulsatile masses. [] Skin: Warm, dry, no erythema, no rash. [] Back: No tenderness, no CVA tenderness. [] Extremities: No tenderness, no cyanosis, no clubbing, ROM intact, no edema. [] Neurologic: Alert and oriented X 3, normal motor function, normal sensory function, no focal deficits noted. [] Psychologic: Affect normal, judgement normal, mood normal. [] Current Patient Data Vital Signs Vital Signs Date Time Temp Pulse Resp B/P (MAP) Pulse Ox O2 Delivery O2 Flow Rate FiO2 12/18/18 13:15 96 Nasal Cannula 2.0 12/18/18 12:29 99.0 81 24 140/68 (92) 99.0 Lab Values Laboratory Tests Test 12/18/18 12:55 12/18/18 13:05 Lactic Acid Level 1.4 mmol/L (0.4-2.0) White Blood Count 9.9 x10^3/uL (4.0-11.0) Red Blood Count 4.71 x10^6/uL (3.50-5.40) Hemoglobin 12.1 g/dL (12.0-15.5) Hematocrit 37.7 % (36.0-47.0) Mean Corpuscular Volume 80 fL (79-100) Mean Corpuscular Hemoglobin 26 pg (25-35) Mean Corpuscular Hemoglobin Concent 32 g/dL (31-37) Red Cell Distribution Width 15.5 % (11.5-14.5) H Platelet Count 383 x10^3/uL (140-400) Neutrophils (%) (Auto) 85 % (31-73) H Lymphocytes (%) (Auto) 7 % (24-48) L Monocytes (%) (Auto) 8 % (0-9) Eosinophils (%) (Auto) 0 % (0-3) Basophils (%) (Auto) 0 % (0-3) Neutrophils # (Auto) 8.4 x10^3uL (1.8-7.7) H Lymphocytes # (Auto) 0.7 x10^3/uL (1.0-4.8) L Monocytes # (Auto) 0.8 x10^3/uL (0.0-1.1) Eosinophils # (Auto) 0.0 x10^3/uL (0.0-0.7) Basophils # (Auto) 0.0 x10^3/uL (0.0-0.2) Sodium Level 144 mmol/L (136-145) Potassium Level 3.7 mmol/L (3.5-5.1) Chloride Level 105 mmol/L (98-107) Carbon Dioxide Level 31 mmol/L (21-32) Anion Gap 8 (6-14) Blood Urea Nitrogen 21 mg/dL (7-20) H Creatinine 1.0 mg/dL (0.6-1.0) Estimated GFR (Cockcroft-Gault) 52.3 BUN/Creatinine Ratio 21 (6-20) H Glucose Level 111 mg/dL (70-99) H Calcium Level 9.1 mg/dL (8.5-10.1) Total Bilirubin Pending Aspartate Amino Transferase (AST) Pending Alanine Aminotransferase (ALT) Pending Alkaline Phosphatase Pending Creatine Kinase Pending Total Protein Pending Albumin Pending Albumin/Globulin Ratio Pending Laboratory Tests 12/18/18 13:05 Laboratory Tests 12/18/18 13:05 EKG EKG ekg: rate of 81 BPM, SINUS RHYTHM WITH PVC[] Radiology/Procedures Radiology/Procedures [][facility] [address] [place], [place] [id number] IMAGING REPORT Signed PATIENT: LEXX MAGANA ACCOUNT: [id number] : 1930 LOCATION: ER AGE: 88 SEX: F EXAM STATUS: REG ER ORD. PHYSICIAN: KAREN LOPEZ DO REASON: soa, cough PROCEDURE: PORTABLE CHEST 1V EXAM: CHEST 1 VIEW History: Shortness of breath COMPARISON: 05/11/2018 TECHNIQUE: Single portable radiograph of the chest FINDINGS: The cardiac silhouette is unremarkable. The lungs are clear bilaterally. The costophrenic sulci are clear and well demarcated. IMPRESSION: No radiographic evidence of an acute cardiopulmonary process. Electronically signed by: Lance Galan MD (12/18/2018 12:58 PM) [id number] DICTATED and SIGNED BY: LANCE GALAN MD DATE: 12/18/18 1258 Course & Med Decision Making Course & Med Decision Making Pertinent Labs and Imaging studies reviewed. (See chart for details) [] Dragon Disclaimer Dragon Disclaimer This electronic medical record was generated, in whole or in part, using a voice recognition dictation system. Departure Departure Impression: Primary Impression: COPD with exacerbation Disposition: ADMITTED INPATIENT Admitting Physician: Osmar Rincon Condition: IMPROVED Referrals: OSMAR RINCON MD (PCP) KAREN LOPEZ DO December 18, 2018 13:35
[2018-12-18 13:39] LABS: CREATINE KINASE 21 U/L (26-192)
[2018-12-18] MEDS: IPRATRPIUM/ALBUTEROL 0.5/2.5MG 3 ML NEBU. NEB SCH ×2 (17:12→20:12)
[2018-12-18 17:22] VITALS: BP 134/67
[2018-12-18 19:00] VITALS: BP 132/50
[2018-12-18] MEDS: IV 1/2 NORMAL SALINE 1,000 ML IV SCH (20:39)
[2018-12-18] MEDS: AZITHROMYCIN 500 MG in IV NORMAL SALINE 250ML 250 ML IV SCH (20:39)
[2018-12-18] MEDS: cefTRIAXone IV Push 1 GM VIAL. IVP SCH (20:39)
[2018-12-18] MEDS: ASPIRIN CHEWABLE 81 MG TABLET. PO SCH (20:40)
[2018-12-18] MEDS: ATORVASTATIN CALCIUM 40 MG TABLET. PO SCH (20:40)
[2018-12-18] MEDS: methylPREDNISolone SOD SUCC PF 40 MG/ML VIAL. IV SCH (21:18)
[2018-12-18 23:00] VITALS: BP 129/53
[2018-12-19 03:00] VITALS: BP 115/51
[2018-12-19] MEDS: methylPREDNISolone SOD SUCC PF 40 MG/ML VIAL. IV SCH ×3 (06:42→20:57)
[2018-12-19 06:55] VITALS: BP 135/72
[2018-12-19] MEDS: IPRATRPIUM/ALBUTEROL 0.5/2.5MG 3 ML NEBU. NEB SCH ×4 (08:00→22:46)
[2018-12-19 10:25] VITALS: BP 129/57
[2018-12-19] MEDS ORDERED: BENZONATATE 100 MG CAPSULE. PO PRN (13:00)
[2018-12-19 14:47] VITALS: BP 124/64
--- NOTE | 2018-12-19 16:44 | HP ---
ADMIT DATE: 12/18/2018 CHIEF COMPLAINT AND HISTORY OF PRESENT ILLNESS: This 88-year-old white female is well known to me from followup in the office. The patient is being treated as an outpatient with prednisone and I believe Levaquin for an exacerbation of COPD, was not improving, presented to the Emergency Room with ongoing shortness of breath, cough and was admitted for the same with failed outpatient treatment. PAST MEDICAL HISTORY: Remarkable primarily for that of the COPD. PAST SURGICAL HISTORY: Remarkable for appendectomy, cholecystectomy and tubal ligation. MEDICATIONS: Brought with the patient, listed on the computer, have been addressed. ALLERGIES: SHE IS ALLERGIC TO PENICILLIN, CIPRO, CODEINE, EGGS, NITROFURANTOIN, AND NUTS WELL ONIONS. SOCIAL HISTORY: She is a reformed smoker, quitting some 40 years or so ago, nondrinker, does not use alcohol. , lives at home alone. FAMILY HISTORY: Noncontributory. REVIEW OF SYSTEMS: As mentioned above. PHYSICAL EXAMINATION: GENERAL: She is well-developed, well-nourished white female who feels much better by the time of my examination. VITAL SIGNS: Stable. She is afebrile. HEAD, EYES, EARS, NOSE AND THROAT: Remarkable for glasses. NECK: Supple without adenopathy or thyromegaly. CHEST: Reveals decreased breath sounds with expiratory wheezes. HEART: Regular rate and rhythm without S3, S4, or murmur. ABDOMEN: Soft, nontender, without hepatosplenomegaly or mass. EXTREMITIES: Without cyanosis, clubbing or edema. NEUROLOGIC: She is intact. LABORATORY DATA: Laboratory reveals normal CBC. CMP is likewise essentially unremarkable with albumin of 3.3, glucose of 111. Troponin was negative. BNP at 729. Lactic acid x 2 that are normal. Chest x-ray shows no acute changes. IMPRESSION: Exacerbation of chronic obstructive pulmonary disease with failed outpatient treatment. PLAN: The patient has been admitted. Pulmonary toilet has been added along with IV steroids, IV fluids, IV antibiotics and the patient will be monitored, managed and treated appropriately. OSMAR JULIAN MD DR: JALEN/hernan JOB#: [id number] / [id number]
[2018-12-19 19:12] VITALS: BP 147/62
[2018-12-19] MEDS: AZITHROMYCIN 500 MG in IV NORMAL SALINE 250ML 250 ML IV SCH (20:57)
[2018-12-19] MEDS: ASPIRIN CHEWABLE 81 MG TABLET. PO SCH (20:57)
[2018-12-19] MEDS: cefTRIAXone IV Push 1 GM VIAL. IVP SCH (20:57)
[2018-12-19] MEDS: ATORVASTATIN CALCIUM 40 MG TABLET. PO SCH (20:57)
[2018-12-19] MEDS: IV 1/2 NORMAL SALINE 1,000 ML IV SCH (21:02)
[2018-12-19 23:40] VITALS: BP 105/64
[2018-12-20 03:22] VITALS: BP 127/65
[2018-12-20 06:55] VITALS: BP 159/70
[2018-12-20] MEDS: methylPREDNISolone SOD SUCC PF 40 MG/ML VIAL. IV SCH ×3 (06:56→21:42)
[2018-12-20] MEDS: IPRATRPIUM/ALBUTEROL 0.5/2.5MG 3 ML NEBU. NEB SCH ×4 (06:58→19:10)
--- NOTE | 2018-12-20 09:21 | NUR ---
SW following pt for anticipated dc needs. Chart reviewed. Pt lives at home alone and does not have skilled needs. No other needs noted at this time. Will continue to follow.
[2018-12-20 11:06] VITALS: BP 152/67
[2018-12-20] MEDS: IV 1/2 NORMAL SALINE 1,000 ML IV SCH (12:00)
[2018-12-20 14:57] VITALS: BP 129/53
[2018-12-20] MEDS: ATORVASTATIN CALCIUM 40 MG TABLET. PO SCH (17:52)
[2018-12-20] MEDS: ASPIRIN CHEWABLE 81 MG TABLET. PO SCH (17:52)
[2018-12-20 19:39] VITALS: BP 155/67
[2018-12-20] MEDS: LACTOBACILLUS RHAMNOSUS GG 1 CAPSULE. PO SCH (19:58)
[2018-12-20] MEDS: cefTRIAXone IV Push 1 GM VIAL. IVP SCH (19:59)
[2018-12-20] MEDS: AZITHROMYCIN 500 MG in IV NORMAL SALINE 250ML 250 ML IV SCH (20:04)
--- NOTE | 2018-12-20 22:24 | PN ---
DATE: 12/20/2018 LOCATION: Room 646. SUBJECTIVE: The patient is awake, alert, breathing better on a daily basis, still has an ongoing cough and the Tessalon Perles have not helped. Her granddaughter brought some cough drops, which have helped a little bit. OBJECTIVE: VITAL SIGNS: Stable. She is afebrile. She is awake and alert. CHEST: Reveals decreased breath sounds, but no wheezing today. HEART: Regular rate and rhythm. ABDOMEN: Benign. EXTREMITIES: Without cyanosis, clubbing, edema. IMPRESSION: Exacerbation of chronic obstructive pulmonary disease with bronchitis, improving. PLAN: Likely transition to p.o. with discharge tomorrow if she continues to do well. OSMAR JULIAN MD DR: JALEN/hernan JOB#: [id number] / [id number]
[2018-12-20 23:42] VITALS: BP 128/38
[2018-12-21] MEDS: IV 1/2 NORMAL SALINE 1,000 ML IV SCH (02:05)
[2018-12-21 03:05] VITALS: BP 135/60
[2018-12-21] MEDS: methylPREDNISolone SOD SUCC PF 40 MG/ML VIAL. IV SCH (05:05)
[2018-12-21 07:57] VITALS: BP 127/64
[2018-12-21] MEDS: LACTOBACILLUS RHAMNOSUS GG 1 CAPSULE. PO SCH (08:04)
[2018-12-21] MEDS: IPRATRPIUM/ALBUTEROL 0.5/2.5MG 3 ML NEBU. NEB SCH ×2 (08:39→11:51)
--- NOTE | 2018-12-21 09:27 | NUR ---
SW following. Discussed with RN, pt from home, no skilled needs, has home o2. RN advised no SW needs and anticipates pt will discharge home today.
[2018-12-21 11:00] VITALS: BP 146/66
[2018-12-21] MEDS ORDERED: LEVO500T8 PO ×2 (11:55→11:56)
[2018-12-21] MEDS ORDERED: PRED20TA PO (12:01)
--- NOTE | 2018-12-21 13:58 | NUR ---
Patient claimed she's going home today. Called Dr. Rincon at 1130 regarding patient's discharge order. This nurse was instructed to continue levofloxacin and prednisone the patient was taking prior to admission; and to follow up in a week at his office.
--- NOTE | 2018-12-21 14:01 | NUR ---
Discharge Note: LEXX MAGANA [address] Discharge instructions and discharge home medications reviewed with patient and a copy given. All questions have been answered and understanding verbalized. The following instructions and handouts were given: Continue Levofloxacin 500 mg tablet PO daily and Prednisone 20 mg tablet, taper as directed. These are the meds she was taking prior to admission. Follow up at Dr. Rincon's office in a week. Continue home oxygen. Call MD if with worsening symptoms. Discontinued lines and drains: peripheral IV intact, patient tolerated removal, no complications noted. Patient discharged to home with self-care accompanied by patient's daughter via wheelchair at 1350.
--- NOTE | 2018-12-22 17:38 | DS ---
DATE OF DISCHARGE: 12/21/2018 PRIMARY DIAGNOSIS: Exacerbation of chronic obstructive pulmonary disease with failed outpatient treatment. ADDITIONAL DIAGNOSIS: Bronchitis. CHIEF COMPLAINT AND HISTORY OF PRESENT ILLNESS: This 88-year-old white female was admitted with failed outpatient treatment of exacerbation of chronic obstructive pulmonary disease with ongoing shortness of breath. SUMMARY OF STAY: The patient was admitted and treated aggressively with IV steroids, IV fluids, IV antibiotics, pulmonary toilet. Improved on a daily basis, was back to her baseline by the day of discharge and pushing for discharge, which I felt was certainly reasonable. DISPOSITION: The patient is discharged to home, regular diet, activity as tolerated, office in 1 week. DISCHARGE MEDICATIONS: Listed on the med rec and have been addressed. OSMAR JULIAN MD DR: [email or web address] JOB#: [id number] / [id number]
== END 2018-12-21 13:44 | disposition home or self-care (01) | DRG 190 ==
LOC: ER 12:13 → 6 SOUTH 13:30
PROVIDERS: ADMIT Family Medicine; ATTEND Family Medicine
DX: J44.1 Chronic obstructive pulmonary disease with (acute) exacerbation (principal); J96.20 Acute and chronic respiratory failure, unspecified whether with hypoxia or hypercapnia; Z99.81 Dependence on supplemental oxygen; Z87.891 Personal history of nicotine dependence; Z88.0 Allergy status to penicillin; Z88.8 Allergy status to other drugs, medicaments and biological substances; Z88.1 Allergy status to other antibiotic agents; Z91.012 Allergy to eggs; Z88.5 Allergy status to narcotic agent; Z91.018 Allergy to other foods; Z90.49 Acquired absence of other specified parts of digestive tract; Z98.51 Tubal ligation status
CPT/HCPCS: 36415; 71045; 80053; 82550; 82553; 83605; 83880; 84484; 85025; 87040; 93005; 94640; 94760; J0456; J0696; J2920; J7050; J7620; 97110; 97116; 99285-25; J7030